=== PATIENT | female | born 1940 | race Caucasian/White ===

== ENCOUNTER 2020-09-15 09:11 | Outpatient (RCR) | payer MEDICARE, SELFPAY | END 2020-09-15 23:59 | LOC: IMMUN 09:11 | PROVIDERS: PCP Family Medicine; Visit Provider Family Medicine | DX: Z23 Encounter for immunization (principal) | CPT/HCPCS: 0011A; 0012A; 91301 ==

== ENCOUNTER 2021-02-22 09:42 | Outpatient (RCR) | payer MEDICARE, SELFPAY ==
[2021-02-22 10:14] VITALS: BP 122/51; PULSE 70; RESP 16; TEMP 36.4; BMI 21.4
[2021-02-22 11:53] LABS: Uric Acid 5.7 mg/dL (2.6-6.0)
--- NOTE | 2021-02-22 12:57 | HP.PCM_ITS ---
History of Present Illness Date of Service: 02/22/21 Chief Complaint: Follow-up on joints of fingers with lesions and tip of finger History of Wound: This is a very young looking 80-year-old woman that has rheumatoid arthritis and Raynaud's disease and sarcoma. She has been seen by dermatology and her arthritis doctor and they both do not know what is wrong with her they gave her Lotrimin cream to put on the lesions. They discussed with her to be referred to wound center for further treatment. [facility], [facility] Medical History Gastric reflux Hypertension Raynauds disease Rheumatoid arthritis Sarcoma Home Medications acetaminophen [Tylenol Extra Strength] 500 mg PO Q6H PRN 02/22/21 [History Last Taken Unknown] cyanocobalamin (vitamin B-12) 2,500 mcg SUBLINGUAL DAILY 02/22/21 [History Last Taken Unknown] flecainide 50 mg PO Q12H 02/22/21 [History Last Taken Unknown] gabapentin 100 mg PO DAILY 02/22/21 [History Last Taken Unknown] hydroxychloroquine 200 mg PO DAILY 02/22/21 [History Last Taken Unknown] loratadine 10 mg PO DAILY 02/22/21 [History Last Taken Unknown] metoprolol tartrate 25 mg PO BID 02/22/21 [History Last Taken Unknown] nifedipine 30 mg PO DAILY 02/22/21 [History Last Taken Unknown] pantoprazole 40 mg PO DAILY 02/22/21 [History Last Taken Unknown] tramadol 50 mg PO BID PRN 02/22/21 [History Last Taken Unknown] Allergy/AdvReac Type Severity Reaction Status Date / Time nitrofurantoin Allergy Hives Verified 09/15/20 07:27 [From Macrodantin] Penicillins Allergy Hives Verified 09/15/20 07:27 sulfamethoxazole Allergy Hives Verified 02/22/21 10:35 trimethoprim [From Bactrim] Allergy Hives Verified 02/22/21 10:35 Social History Smoking Status: Never smoker ROS Constitutional Constitutional: Reports systems reviewed and no addt'l complaints, except as documented Eyes Eyes: Reports systems reviewed and no addt'l complaints, except as documented ENT HEENT: Reports systems reviewed and no addt'l complaints, except as documented Cardiovascular Cardiovascular: Reports systems reviewed and no addt'l complaints, except as doc umented Respiratory/Chest Respiratory/Chest: Reports systems reviewed and no addt'l complaints, except as documented Gastrointestinal Gastrointestinal: Reports systems reviewed and no addt'l complaints, except as documented Genitourinary Genitourinary: Reports systems reviewed and no addt'l complaints, except as documented Musculoskeletal Musculoskeletal: Reports systems reviewed and no addt'l complaints, except as documented, joint stiffness and limited range of motion Integumentary Integumentary: Reports systems reviewed and no addt'l complaints, except as documented, new lesions, non-healing lesions and other Details: Deformity of fingers Neurologic Neurologic: Reports systems reviewed and no addt'l complaints, except as docu mented Psychiatric Psychiatric: Reports systems reviewed and no addt'l complaints, except as documented Endocrine Endocrinology: Reports systems reviewed and no addt'l complaints, except as documented Hematologic/Lymphatic Hematologic/Lymphatic: Reports systems reviewed and no addt'l complaints, except as documented Allergic/Immunologic Allergic/Immunologic: Reports systems reviewed and no addt'l complaints, except as documented Vital Signs Vital Signs Vital Signs: 02/22/21 10:14 Temperature 97.5 F L Temperature Source Temporal Pulse Rate 70 Respiratory Rate 16 Blood Pressure 122/51 H Blood Pressure Mean 74 Blood Pressure Source Monitor Blood Pressure Position Sitting Blood Pressure Location Left Arm Oxygen Delivery Method Room Air Weight Weight: 110 lb Body Mass Index (BMI) 21.4 Physical Exam Const oriented x3 General Appearance: cooperative Exam Limitations: no limitations HEENT normocephalic Head and Scalp: normal to inspection Face and Sinus: normal facial exam Nose: external nose normal General Ear: hearing grossly impaired External Ear: external ears normal Mouth: oral and palatal mucosa normal Eyes PERRL General Eye: normal appearance of both eyes Neck full ROM General: normal visual inspection Resp normal respiratory effort Effort and Inspection: able to speak in complete sentences Auscultation: clear to auscultation bilaterally Cardio regular rate and regular rhythm Palpation: normal PMI Rate: regular rate Rhythm: regular rhythm GI Auscultation: normoactive bowel sounds Palpation: soft and no hepatosplenomegaly external exam normal Back/Spine Cervical Spine: cervical ROM normal Thoracic Spine / Upper Back: normal to inspection Lumbar Spine / Lower Back: normal to inspection Extremity normal to inspection General Extremity: normal exam except as noted Skin no rashes or lesions noted Neuro oriented x3 Psych Appearance: grossly normal Speech: normal speech Thought Content: normal thought content Judgement: judgement good Debridement Note Debridement Note Post-Debridement Measurements and Additional Note: Post-Debridement Measurements/Treatment - Nurse 1 - General Ulcer Assessment Start: 02/22/21 10:10 Freq: Status: Active Protocol: GLENDA Activity Type Activity Date Activity User E-Sign Co-Sign Detail Recorded Client Recorded Date Recorded By Document 02/22/21 10:14 [facility] [id number] 02/22/21 10:31 [facility] 02/22/21 10:14 - Today's Visit Information Type of service Initial Visit Arrival Mode Ambulatory Transfer Assistance None Accompanied by , daughter Patient Identification Verified (Name & Yes ) Patient Requires Transmission-Based No Precautions Height and Weight Height 5 ft Weight 110 lb Weight in Pounds 110.0 lbs Body Mass Index (BMI) 21.4 BMI Classification Normal BSA - Morteza 1.45 Vital Signs Temperature (97.8 F-99.1 F) 97.5 F L Temperature Source Temporal Pulse Rate (60-100) 70 Pulse Location Monitor Respiratory Rate (12-18) 16 Respiratory rate source Observation Oxygen Delivery Method Room Air Blood Pressure (90/60-120/80) 122/51 H Blood Pressure Mean 74 Source Monitor Position Sitting Blood Pressure Location Left Arm History Since Last Visit- (Skip if this is Patient's initial visit) Left Footwear Regular Shoe Right Footwear Regular Shoe Communication Assessment Preferred language German Able to Read Yes Able to Write Yes Communication Tools None Right Hearing Abillity Normal Left Hearing Abillity Normal Visual Assistive Devices Glasses Teaching Assessment Preferences Verbal,Written, Audio/Visual, Demonstration Barriers to Learning None Readiness To Learn Excellent Willingness to Engage in Self Management High Activies Readiness to Engage in Self Management High Activities Anxiety Level Calm Cooperation Cooperative Perception Coherent Interest in Health Problem Asks Questions Education Importance Acknowledges Need Does Patient Smoke tobacco or other No substances Smoking Status Never smoker Is Patient Diabetic No Functional Assessment Recent Decline in Ability to Perform Denies Any Declines Culture/Pentecostalism/Echo Vascular Technologist Cultural/Pentecostalism Needs that may affect No Treatment Plan MARCIA - Nurse 1 - General Ulcer Measurement Start: 02/22/21 10:10 Freq: Status: Active Protocol: Activity Type Activity Date Activity User E-Sign Co-Sign Detail Recorded Client Recorded Date Recorded By Document 02/22/21 10:14 [facility] [id number] 02/22/21 10:31 [facility] 02/22/21 10:14 Wound Center Nurse 1 #4- R 3RD FINGER MEDIAL -Combined with other wound No -Current Size (cm) - Length 0.5 -Current Size (cm) - Width 0.3 -Current Size (cm) - Depth 0.1 -Total Square Cm 0.15 -Date of Last Picture (Recall this 02/22/21 field) -Photo Taken Yes -Epithelialization None Present -Tunneling No -Undermining/Tunneling No -Circular Undermining No -Exudate Amt None Present -Wound Margin Distinct, Outline Attached -Granulation Amt None Present (0 %) -Slough/Fibrin Yes -Necrosis Amt Large (67-100%) -Necrotic Tissue Type Adherent Slough -Texture (Antonieta-wound Skin Appearance) Assessed -Moisture (Antonieta-wound Skin Appearance) Assessed -Color (Antonieta-wound Skin Appearance) Assessed -Temperature (Antonieta-wound Skin No Abnormality Appearance) (Pt Warm) -Tenderness on Palpation (Antonieta-wound Yes Skin Appearance) -Ulcer Cleansing Rinsed/ Irrigated with Saline -Foul Odor after Cleansing No -Anesthetic Used 5% Lidocaine Gel #3- L LAT 4TH FINGER -Combined with other wound No -Current Size (cm) - Length 0.5 -Current Size (cm) - Width 0.3 -Current Size (cm) - Depth 0.1 -Total Square Cm 0.15 -Date of Last Picture (Recall this 02/22/21 field) -Photo Taken Yes -Epithelialization None Present -Tunneling No -Undermining/Tunneling No -Circular Undermining No -Exudate Amt None Present -Wound Margin Distinct, Outline Attached -Granulation Amt None Present (0 %) -Slough/Fibrin Yes -Necrosis Amt Small (1-33%) -Necrotic Tissue Type Adherent Slough -Texture (Antonieta-wound Skin Appearance) Assessed -Moisture (Antonieta-wound Skin Appearance) Assessed -Color (Antonieta-wound Skin Appearance) Assessed -Temperature (Antonieta-wound Skin No Abnormality Appearance) (Pt Warm) -Tenderness on Palpation (Antonieta-wound Yes Skin Appearance) -Ulcer Cleansing Rinsed/ Irrigated with Saline -Foul Odor after Cleansing No -Anesthetic Used 5% Lidocaine Gel #2- L 3RD FINGER ANTERIOR -Combined with other wound No -Current Size (cm) - Length 0.1 -Current Size (cm) - Width 0.2 -Current Size (cm) - Depth 0.1 -Total Square Cm 0.02 -Date of Last Picture (Recall this 02/22/21 field) -Photo Taken Yes -Epithelialization None Present -Tunneling No -Undermining/Tunneling No -Circular Undermining No -Exudate Amt None Present -Wound Margin Distinct, Outline Attached -Granulation Amt None Present (0 %) -Slough/Fibrin Yes -Necrosis Amt Large (67-100%) -Necrotic Tissue Type Adherent Slough -Texture (Antonieta-wound Skin Appearance) Assessed, Localized Edema ,Scarring -Moisture (Antonieta-wound Skin Appearance) Assessed -Color (Antonieta-wound Skin Appearance) Assessed -Temperature (Antonieta-wound Skin No Abnormality Appearance) (Pt Warm) -Tenderness on Palpation (Antonieta-wound No Skin Appearance) -Ulcer Cleansing Rinsed/ Irrigated with Saline -Foul Odor after Cleansing No -Anesthetic Used 5% Lidocaine Gel #1- R 3RD FINGER TIP -Combined with other wound No -Current Size (cm) - Length 0.5 -Current Size (cm) - Width 0.8 -Current Size (cm) - Depth 0.1 -Total Square Cm 0.40 -Date of Last Picture (Recall this 02/22/21 field) -Photo Taken Yes -Epithelialization None Present -Tunneling No -Undermining/Tunneling No -Circular Undermining No -Exudate Amt None Present -Wound Margin Distinct, Outline Attached -Granulation Amt None Present (0 %) -Slough/Fibrin Yes -Necrosis Amt Large (67-100%) -Necrotic Tissue Type Adherent Slough -Texture (Antonieta-wound Skin Appearance) Assessed -Moisture (Antonieta-wound Skin Appearance) Assessed -Color (Antonieta-wound Skin Appearance) Assessed, Erythema -Temperature (Antonieta-wound Skin No Abnormality Appearance) (Pt Warm) -Tenderness on Palpation (Antonieta-wound Yes Skin Appearance) -Ulcer Cleansing Rinsed/ Irrigated with Saline -Foul Odor after Cleansing No -Anesthetic Used 5% Lidocaine Gel No debridement was completed: No debridement was completed today Lab / Micro Data Labs: Laboratory Results - last 24 hr 02/22/21 11:08 Uric Acid 5.7 Assessment/Plan Assessment/Plan (1) Rheumatoid arthritis: CODE(S): M06.9 - Rheumatoid arthritis, unspecified (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
== END 2021-02-22 23:59 ==
LOC: WC 09:42
PROVIDERS: PCP Family Medicine; Referring Provider Nurse Practitioner; Visit Provider Nurse Practitioner
DX: M06.9 Rheumatoid arthritis, unspecified (principal); M1A.9XX1 Chronic gout, unspecified, with tophus (tophi); I10 Essential (primary) hypertension; I73.00 Raynaud's syndrome without gangrene; K21.9 Gastro-esophageal reflux disease without esophagitis; Z79.899 Other long term (current) drug therapy
CPT/HCPCS: 36415; 84550; 99213; G0463

== ENCOUNTER → 2021-03-02 09:54 | Outpatient (CLI) | payer MEDICARE, SELFPAY ==
[2021-02-22 10:14] VITALS: BMI 21.4
[2021-03-02 12:57] LABS: Absolute Lymphocyte Count 2.27 X10^3/uL (0.83-4.51); Absolute Neutrophil Count 6.3 X10^3/uL (2.0-7.7); Basophil# 0.07 X10^3/uL; Basophil% 0.7 % (0-1); Eosinophil# 0.38 X10^3/uL; Eosinophils% 3.8 % (0-5); Lymphocyte # 2.27 X10^3/ul (0.83-4.51); Lymphocyte % 22.7 % (19-41); Mean Corp Hgb Conc 28.1 g/dL (32-36); Mean Corpuscular Hgb 24.1 pg (27.0-32.0); Mean Corpuscular Volume 85.6 fL (81-99); Mean Platelet Vol. 9.5 fl (6.2-12.0); Monocyte# 0.95 X10^3/uL; Monocyte% 9.5 % (0-10); NRBC Flagged by Analyzer 0 % (0-5); Neutrophil # 6.29 X10^3/uL (2.7-7.7); Neutrophil % 62.8 % (47-70); Platelet Count 374 K/mm3 (150-450); RBC Distribution Width CV 15.4 % (11.6-14.6); Red Blood Count 3.74 M/mm3 (4.2-5.4)
[2021-03-02 13:24] LABS: ALB/GLOB Ratio 0.9 RATIO (0.9-2.4); AST(SGOT) 19 U/L (15-37); Alanine Aminotransfer ALT/SGPT 14 U/L (13-56); Albumin, Serum 3.4 g/dL (3.2-5.0); Alkaline Phosphatase 54 U/L (45-117); Anion Gap 6 (5-15); BUN 22 mg/dL (7-18); BUN/Creat Ratio 26.8 RATIO (10-20); Calcium,Total 8.3 mg/dL (8.5-10.1); Chloride 105 mmol/L (98-107); Creatinine, Serum 0.82 mg/dL (0.55-1.02); EST Glomerular Filtration Rate 71 mL/min (>60); Est Glom Filt Rate - Afr Amer 86 mL/min (>60); Globulin 3.8 g/dL (2.2-4.2); Glucose 93 mg/dL (74-106); Phosphorus 2.7 mg/dL (2.5-4.9); Potassium 5.1 mmol/L (3.5-5.1); Protein, Total 7.2 g/dL (6.4-8.2); Sodium Level 140 mmol/L (136-145)
== END ==
PROVIDERS: PCP Family Medicine; Visit Provider Nurse Practitioner
DX: M06.9 Rheumatoid arthritis, unspecified (principal); M1A.9XX1 Chronic gout, unspecified, with tophus (tophi)
CPT/HCPCS: 36415; 80053; 84100; 85025

== ENCOUNTER 2021-03-08 10:30 | Outpatient (RCR) | payer MEDICARE, SELFPAY ==
[2021-02-23 00:37] VITALS: BP 122/51; PULSE 70; RESP 16; TEMP 36.4
[2021-03-08 10:37] VITALS: BP 125/58; PULSE 76; TEMP 36.5; BMI 21.4
--- NOTE | 2021-03-08 12:28 | PN.PCM_ITS ---
History of Present Illness Date of Service: 03/08/21 Chief Complaint: Follow-up on joints of fingers with lesions and tip of finger History of Wound: This is a very young looking 80-year-old woman that has rheumatoid arthritis and Raynaud's disease and sarcoma. She has been seen by dermatology and her arthritis doctor and they both do not know what is wrong with her they gave her Lotrimin cream to put on the lesions. They discussed with her to be referred to wound center for further treatment. Subjective Subjective Patient was hesitant to start the allopurinol until she talked with me and get the lab results. Objective Data Objective Data She has healed nodules on each finger MIP joints. Patient is to start allopurinol 300 mg once a day follow-up in 2 months. Vital Signs: Vital Signs Temp Pulse Resp BP 97.7 F L 76 16 125/58 H 03/08/21 10:37 03/08/21 10:37 02/23/21 00:37 03/08/21 10:37 Weight: 110 lb Body Mass Index (BMI) 21.4 Lab / Micro Data Attestation: I reviewed the patient's lab results. Lab results narrative: Kidney functions are normal and uric acid is on the high end of normal Physical Exam Const oriented x3 General Appearance: cooperative Exam Limitations: no limitations Resp normal respiratory effort Effort and Inspection: able to speak in complete sentences Auscultation: clear to auscultation bilaterally Cardio regular rate and regular rhythm Palpation: normal PMI Rate: regular rate Rhythm: regular rhythm Extremity normal to inspection General Extremity: normal exam except as noted Skin Lesions: no lesions Neuro oriented x3 Psych Appearance: grossly normal Speech: normal speech Thought Content: normal thought content Judgement: judgement good Debridement Note Debridement Note Post-Debridement Measurements and Additional Note: Post-Debridement Measurements/Treatment - Nurse 1 - General Ulcer Assessment Start: 03/08/21 10:37 Freq: Status: Active Protocol: GLENDA Activity Type Activity Date Activity User E-Sign Co-Sign Detail Recorded Client Recorded Date Recorded By Document 03/08/21 10:37 ROGELIO [id number] 03/08/21 10:42 ROGELIO 03/08/21 10:37 - Today's Visit Information Type of service Follow-up Visit (Physician/SECURITY SYSTEMS ENGINEER ) Arrival Mode Ambulatory,Cane Patient Identification Verified (Name & Yes ) Height and Weight Body Mass Index (BMI) 21.4 BMI Classification Normal Vital Signs Temperature (97.8 F-99.1 F) 97.7 F L Temperature Source Temporal Pulse Rate (60-100) 76 Pulse Location Monitor Blood Pressure (90/60-120/80) 125/58 H Blood Pressure Mean (mm Hg) 80 Source Monitor Position Semi-Fowlers Blood Pressure Location Right Arm History Since Last Visit- (Skip if this is Patient's initial visit) Have you changed medications since your No last visit? Any new allergies or adverse reactions No Had a fall/change in ADL's that may No increase risk of falls Signs or symptoms of abuse and/or No neglect since last visit Have you been in the hospital since your No last visit? Has dressing in place as prescribed No Has compression in place as prescribed N/A Has offloadiing in place as prescribed N/A Experienced any changes in pain level or No management Left Footwear Regular Shoe Right Footwear Regular Shoe Pain Scale: 0-10 Numeric Is Patient Pain Free? Yes WC - Nurse 1 - General Ulcer Measurement Start: 03/08/21 10:37 Freq: Status: Active Protocol: Activity Type Activity Date Activity User E-Sign Co-Sign Detail Recorded Client Recorded Date Recorded By Document 03/08/21 10:37 ROGELIO [id number] 03/08/21 10:42 ROGELIO 03/08/21 10:37 Wound Center Nurse 1 #4- R 3RD FINGER MEDIAL -Current Size (cm) - Length 0.1 -Current Size (cm) - Width 0.1 -Current Size (cm) - Depth 0.1 -Total Square Cm 0.01 -Exudate Amt Small -Exudate Type Serosanguineous -Wound Margin Distinct, Outline Attached -Granulation Amt Small (1-33%) -Granulation Quality [place] -Necrosis Amt None Present (0 %) -Texture (Antonieta-wound Skin Appearance) Assessed, Scarring -Moisture (Antonieta-wound Skin Appearance) No Abnormality, Assessed -Color (Antonieta-wound Skin Appearance) No Abnormality, Assessed -Temperature (Antonieta-wound Skin No Abnormality Appearance) (Pt Warm) -Tenderness on Palpation (Antonieta-wound No Skin Appearance) -Ulcer Cleansing Rinsed/ Irrigated with Saline -Foul Odor after Cleansing No -Anesthetic Used 5% Lidocaine Gel #3- L LAT 4TH FINGER -Current Size (cm) - Length 0.1 -Current Size (cm) - Width 0.1 -Current Size (cm) - Depth 0.1 -Total Square Cm 0.01 -Exudate Amt Small -Exudate Type Serosanguineous -Wound Margin Distinct, Outline Attached -Granulation Amt Small (1-33%) -Granulation Quality [place] -Slough/Fibrin No -Necrosis Amt None Present (0 %) -Texture (Antonieta-wound Skin Appearance) Assessed, Scarring -Moisture (Antonieta-wound Skin Appearance) No Abnormality, Assessed -Color (Antonieta-wound Skin Appearance) No Abnormality, Assessed -Temperature (Antonieta-wound Skin No Abnormality Appearance) (Pt Warm) -Tenderness on Palpation (Antonieta-wound No Skin Appearance) -Ulcer Cleansing Rinsed/ Irrigated with Saline -Foul Odor after Cleansing No -Anesthetic Used 5% Lidocaine Gel #2- L 3RD FINGER ANTERIOR -Current Size (cm) - Length 0.1 -Current Size (cm) - Width 0.1 -Current Size (cm) - Depth 0.1 -Total Square Cm 0.01 -Exudate Amt None Present -Wound Margin Distinct, Outline Attached -Granulation Amt Small (1-33%) -Granulation Quality [place] -Slough/Fibrin No -Necrosis Amt None Present (0 %) -Texture (Antonieta-wound Skin Appearance) Assessed, Scarring -Moisture (Antonieta-wound Skin Appearance) No Abnormality, Assessed -Color (Antonieta-wound Skin Appearance) No Abnormality, Assessed -Temperature (Antonieta-wound Skin No Abnormality Appearance) (Pt Warm) -Tenderness on Palpation (Antonieta-wound No Skin Appearance) -Ulcer Cleansing Rinsed/ Irrigated with Saline -Foul Odor after Cleansing No -Anesthetic Used 5% Lidocaine Gel #1- R 3RD FINGER TIP -Current Size (cm) - Length 0.1 -Current Size (cm) - Width 0.1 -Current Size (cm) - Depth 0.1 -Total Square Cm 0.01 -Exudate Amt Small -Exudate Type Serosanguineous -Wound Margin Distinct, Outline Attached -Granulation Amt Small (1-33%) -Granulation Quality [place] -Necrosis Amt None Present (0 %) -Texture (Antonieta-wound Skin Appearance) Assessed, Scarring -Moisture (Antonieta-wound Skin Appearance) No Abnormality, Assessed -Color (Antonieta-wound Skin Appearance) No Abnormality, Assessed -Temperature (Antonieta-wound Skin No Abnormality Appearance) (Pt Warm) -Tenderness on Palpation (Antonieta-wound No Skin Appearance) -Ulcer Cleansing Rinsed/ Irrigated with Saline -Foul Odor after Cleansing No -Anesthetic Used 5% Lidocaine Gel WC - Nurse 2 - General Ulcer CM Notes Start: 03/08/21 10:37 Freq: Status: Active Protocol: Activity Type Activity Date Activity User E-Sign Co-Sign Detail Recorded Client Recorded Date Recorded By Document 03/08/21 11:02 MW [id number] 03/08/21 11:06 MW 03/08/21 11:02 Wound Center Nurse 2 #4- R 3RD FINGER MEDIAL -Wound/Ulcer Outcome Healed- Epithelialized #3- L LAT 4TH FINGER -Wound/Ulcer Outcome Healed- Epithelialized #2- L 3RD FINGER ANTERIOR -Wound/Ulcer Outcome Healed- Epithelialized #1- R 3RD FINGER TIP -Wound/Ulcer Outcome Healed- Epithelialized Pain Scale: 0-10 Numeric Is Patient Pain Free? 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
== END 2021-03-25 23:59 ==
LOC: WC 10:30
PROVIDERS: PCP Family Medicine; Referring Provider Nurse Practitioner; Visit Provider Nurse Practitioner
DX: M06.9 Rheumatoid arthritis, unspecified (principal); I73.00 Raynaud's syndrome without gangrene; M1A.9XX1 Chronic gout, unspecified, with tophus (tophi); Z79.899 Other long term (current) drug therapy
CPT/HCPCS: 99213; G0463

== ENCOUNTER 2021-05-10 10:30 | Outpatient (RCR) | payer MEDICARE, SELFPAY ==
[2021-03-26 00:35] VITALS: BP 125/58; PULSE 76; RESP 16; TEMP 36.5
--- NOTE | 2021-05-10 11:41 | PCM.WC.PN ---
History of Present Illness Date of Service: 05/10/21 Chief Complaint: Follow-up on joints of fingers with lesions and tip of finger History of Wound: This is a very young looking 80-year-old woman that has rheumatoid arthritis and Raynaud's disease and sarcoma. She has been seen by dermatology and her rheumatology doctor and they both do not know what is wrong with her they gave her Lotrimin cream to put on the lesions. They discussed with her to be referred to wound center for further treatment. Progress of Wound: The tophi's were on her MIP joints and DIP joints were external. Now they have disappeared and her hands looks very smooth. Patient states she saw a difference after 1 week on medication. So officially the patient has gout with tophi and needs to be on allopurinol probably the rest of her life. We discussed the options of not having to be at 300 she could try a year at 300 and the may be decreased to 200 and see if she gets an outbreak it is really up about her. I only request that she gets thorough kidney functions every 6 to 12 months recheck her kidney functions on the medication. Patient is to be discharged from the wound center unless there is other complications. Subjective Subjective Patient is extremely happy with the outcome has been waiting 2 years for someone to finally diagnosed her correctly and treat her correctly. Objective Data Objective Data Again all fingers are smooth there is no sign of external tophi. Patient is tolerating medication well on a daily basis Vital Signs: Vital Signs Temp Pulse Resp BP 97.7 F L 76 16 125/58 H 03/26/21 00:35 03/26/21 00:35 03/26/21 00:35 03/26/21 00:35 Weight: 110 lb Body Mass Index (BMI) 21.4 Physical Exam Const oriented x3 General Appearance: cooperative Exam Limitations: no limitations Resp normal respiratory effort Effort and Inspection: able to speak in complete sentences Auscultation: clear to auscultation bilaterally Cardio regular rate and regular rhythm Palpation: normal PMI Rate: regular rate Rhythm: regular rhythm Extremity normal to inspection General Extremity: normal exam except as noted Skin Lesions: no lesions Neuro oriented x3 Psych Appearance: grossly normal Speech: normal speech Thought Content: normal thought content Judgement: judgement good Debridement Note Debridement Note Wound debrided: Finger knuckles joints No debridement was completed: No debridement was completed today Assessment/Plan Assessment/Plan (1) Rheumatoid arthritis: CODE(S): M06.9 - Rheumatoid arthritis, unspecified QUALIFIERS: Rheumatoid arthritis location: hand Rheumatoid factor presence: unspecified presence Laterality: bilateral Qualified Code(s): M06.9 - Rheumatoid arthritis, unspecified (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 Follow-up with own PCP for further lab studies and prescription refills. May try to decrease dosing to 200 mg a day to see if tophi reappear or or if tolerant to that dosage. Discharge from the wound center follow-up as needed
== END 2021-05-10 10:48 | disposition home or self-care (01) ==
LOC: WC 10:30
PROVIDERS: PCP Family Medicine; Referring Provider Nurse Practitioner; Visit Provider Nurse Practitioner
DX: M06.9 Rheumatoid arthritis, unspecified (principal); M1A.9XX1 Chronic gout, unspecified, with tophus (tophi)
CPT/HCPCS: 99213; G0463

== ENCOUNTER 2022-01-10 07:30 | Outpatient (RCR) | payer MEDICARE, SELFPAY ==
--- NOTE | 2022-01-10 09:14 | PCM.WC.PN ---
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 Dermatology and rheumatology has not been able to help her with these. Had seen her approximately 1 year ago for the same and have not started her on allopurinol daily and they never refilled per her family doctor would not refill the med. Patient states she was only on for 1 month. This time we will restart the allopurinol at 300 and retake lab work get DANITZA liver and renal panel TSH. And follow her back up in 1 month Progress of Wound: Still has the crusted open tophi of the right third finger knuckle and deformity of her finger she says its hard to grab things. Will get more lab work and reevaluate her in 1 month and see we can move her meds around. Subjective Subjective Discussed with patient's options that we can do she was agreeable Objective Data Objective Data As stated above we will look at her labs looking at renal functions and liver functions thyroid We will restart her allopurinol 300 we could go up to 600 I want to make sure her kidneys and liver were good we will follow her up in 1 month Lab / Micro Data Attestation: I reviewed the patient's lab results. (So far renal liver panel is all within normal thyroid good. Her DANITZA is pending) Result Diagrams: 01/10/22 09:00 01/10/22 09:00 Physical Exam Const oriented x3 General Appearance: cooperative Exam Limitations: no limitations Resp normal respiratory effort Effort and Inspection: able to speak in complete sentences Auscultation: clear to auscultation bilaterally Cardio regular rate and regular rhythm Palpation: normal PMI Rate: regular rate Rhythm: regular rhythm Extremity normal to inspection General Extremity: normal exam except as noted Skin Lesions: no lesions Neuro oriented x3 Psych Appearance: grossly normal Speech: normal speech Thought Content: normal thought content Judgement: judgement good Debridement Note Debridement Note No debridement was completed: No debridement was completed today Post-Debridement Measurements and Additional Note: Post-Debridement Measurements/Treatment MARCIA - Nurse 1 - General Ulcer Assessment Start: 01/10/22 08:08 Freq: Status: Active Protocol: GLENDA Activity Type Activity Date Activity User E-Sign Co-Sign Detail Recorded Client Recorded Date Recorded By Document 01/10/22 08:08 AK [id number] 01/10/22 08:17 AK 01/10/22 08:08 - Today's Visit Information Type of service Follow-up Visit (Physician/SILICA [employer]Y PRESS HELPER ) Arrival Mode Ambulatory Patient Identification Verified (Name & Yes ) Patient Requires Transmission-Based No Precautions Safety Precautions NA Pain Scale: 0-10 Numeric Is Patient Pain Free? Yes - Nurse 1 - General Ulcer Measurement Start: 01/10/22 08:08 Freq: Status: Active Protocol: Activity Type Activity Date Activity User E-Sign Co-Sign Detail Recorded Client Recorded Date Recorded By Document 01/10/22 08:08 AK [id number] 01/10/22 08:17 AK 01/10/22 08:08 Wound Center Nurse 1 #5 L 2nd finger -Current Size (cm) - Length 0.5 -Current Size (cm) - Width 1.2 -Current Size (cm) - Depth 0.1 -Total Square Cm 0.60 -Date of Last Picture (Recall this 01/10/22 field) -Photo Taken Yes -Tunneling No -Undermining/Tunneling No -Circular Undermining No -Change in Wound Grade/Stage No -Exudate Amt None Present -Wound Margin Distinct, Outline Attached -Granulation Quality N/A -Necrosis Amt Small (1-33%) -Necrotic Tissue Type Eschar -Structure Exposed N/A -Texture (Antonieta-wound Skin Appearance) Assessed -Moisture (Antonieta-wound Skin Appearance) Assessed -Color (Antonieta-wound Skin Appearance) Assessed -Temperature (Antonieta-wound Skin No Abnormality Appearance) (Pt Warm) -Tenderness on Palpation (Antonieta-wound No Skin Appearance) -Ulcer Cleansing Rinsed/ Irrigated with Saline -Anesthetic Used 4% Lidocaine Solution - Nurse 2 - General Ulcer CM Notes Start: 01/10/22 08:08 Freq: Status: Active Protocol: Activity Type Activity Date Activity User E-Sign Co-Sign Detail Recorded Client Recorded Date Recorded By Document 01/10/22 08:36 MW [id number] 01/10/22 08:40 MW 01/10/22 08:36 Wound Center Nurse 2 -Time 08:36 -Correct Patient Yes -Correct Side, Site, Position Yes -Correct Procedure Yes -Procedure Performed No Pain Scale: 0-10 Numeric Is Patient Pain Free? Yes - Nurse 3 - General Ulcer D/C NN Start: 01/10/22 08:08 Freq: Status: Active Protocol: Activity Type Activity Date Activity User E-Sign Co-Sign Detail Recorded Client Recorded Date Recorded By Document 01/10/22 08:43 MW [id number] 01/10/22 08:44 MW 01/10/22 08:43 Wound Care Nurse 3 #5 L 2nd finger -Ulcer Cleansing Not Cleansed -Foul Odor after Cleansing No -Negative Pressure Wound Therapy N/A -Other Dressing scab left open to air Treatment Response Procedure Tolerated Well Pain Scale: 0-10 Numeric Is Patient Pain Free? 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
[2022-01-10 10:23] LABS: AST(SGOT) 19 U/L (15-37); Alanine Aminotransfer ALT/SGPT 16 U/L (13-56); Albumin, Serum 3.5 g/dL (3.2-5.0); Alkaline Phosphatase 49 U/L (45-117); Anion Gap 4 (5-15); BUN 25 mg/dL (7-18); BUN/Creat Ratio 27.3 RATIO (10-20); Bilirubin, Direct 0.11 mg/dL (0.00-0.30); Calcium,Total 8.7 mg/dL (8.5-10.1); Chloride 108 mmol/L (98-107); Creatinine, Serum 0.92 mg/dL (0.55-1.02); EST Glomerular Filtration Rate 63 mL/min (>60); Est Glom Filt Rate - Afr Amer 76 mL/min (>60); Globulin 3.9 g/dL (2.2-4.2); Glucose 97 mg/dL (74-106); Phosphorus 3.9 mg/dL (2.5-4.9); Potassium 4.4 mmol/L (3.5-5.1); Protein, Total 7.4 g/dL (6.4-8.2); Sodium Level 140 mmol/L (136-145); Thyroid Stim Hormone (TSH) 1.13 uIU/mL (0.358-3.74); Uric Acid 5.3 mg/dL (2.6-6.0)
[2022-01-11 17:19] LABS: ANTINUCLEAR ANTIBODIES DIRECT Negative (Negative)
== END 2022-01-23 23:59 | disposition home or self-care (01) ==
LOC: WC 07:30
PROVIDERS: PCP Family Medicine; Referring Provider Nurse Practitioner; Visit Provider Nurse Practitioner
DX: M06.9 Rheumatoid arthritis, unspecified (principal); M1A.9XX1 Chronic gout, unspecified, with tophus (tophi); Z79.899 Other long term (current) drug therapy
CPT/HCPCS: 36415; 80048; 80076; 84100; 84443; 84550; 86038; 86225; 86235; 99213; G0463

== ENCOUNTER 2022-02-07 08:54 | Outpatient (RCR) | payer MEDICARE, SELFPAY ==
[2022-02-07 08:57] VITALS: BP 129/89; PULSE 70; TEMP 36.3
--- NOTE | 2022-02-07 09:49 | PN.PCM_ITS ---
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 Dermatology and rheumatology has not been able to help her with these. Had seen her approximately 1 year ago for the same and have not started her on allopurinol daily and they never refilled per her family doctor would not refill the med. Patient states she was only on for 1 month. This time we will restart the allopurinol at 300 and retake lab work get DANITZA liver and renal panel TSH. And follow her back up in 1 month Progress of Wound: All of her labs were within normal limits and her uric acid is on the high end of normal but still normal. Patient has still been taking allopurinol 300 mg a day and doing well. Hands look better. Third knuckle of the left hand still looks smaller and still hard. Still will not remove this at this time trying to shrink it. Suggest she start her Plaquenil at increased dose of twice daily to maybe help with pain. She is already on gabapentin but it makes her extremely tired. I also suggested she refer her to [facility] for a second opinion. Also suggested using Voltaren cream to her hands and wrists she is developing on the right medial wrist another painful lump. Subjective Subjective Patient just complains of a lot of pain in her hands 9 out of 10 and will is willing to try anything for healing. She feels the fingers look better Objective Data Objective Data I think the fingers look better on all digits less breakage of skin the tophi's are coming through only on the 1 knuckle. There are smaller skin is healing over top we will continue the uric acid increase her Plaquenil. Have her follow-up with a different arthritis lens and frames prescription clerk. Follow-up in 6 weeks Vital Signs: Vital Signs Temp Pulse BP 97.4 F L 70 129/89 H 02/07/22 08:57 02/07/22 08:57 02/07/22 08:57 Physical Exam Const oriented x3 General Appearance: cooperative Exam Limitations: no limitations Resp normal respiratory effort Effort and Inspection: able to speak in complete sentences Auscultation: clear to auscultation bilaterally Cardio regular rate and regular rhythm Palpation: normal PMI Rate: regular rate Rhythm: regular rhythm Extremity normal to inspection General Extremity: normal exam except as noted Skin Lesions: no lesions Neuro oriented x3 Psych Appearance: grossly normal Speech: normal speech Thought Content: normal thought content Judgement: judgement good Debridement Note Debridement Note No debridement was completed: No debridement was completed today Post-Debridement Measurements and Additional Note: Post-Debridement Measurements/Treatment MARCIA - Nurse 1 - General Ulcer Assessment Start: 02/07/22 08:57 Freq: Status: Active Protocol: GLENDA Activity Type Activity Date Activity User E-sign Co-sign Detail Recorded Client Recorded Date Recorded By Document 02/07/22 08:57 ROGELIO [id number] 02/07/22 09:00 ROGELIO 02/07/22 08:57 WC - Today's Visit Information Type of service Follow-up Visit (Physician/BALLISTICIAN ) Arrival Mode Ambulatory Patient Identification Verified (Name & Yes ) Vital Signs Temperature (97.8 F-99.1 F) 97.4 F L Temperature Source Temporal Pulse Rate (60-100) 70 Pulse Location Monitor Blood Pressure (90/60-120/80) 129/89 H Blood Pressure Mean (mm Hg) 102 Source Monitor Position Sitting Blood Pressure Location Right Arm History Since Last Visit- (Skip if this is Patient's initial visit) Have you changed medications since your No last visit? Any new allergies or adverse reactions No Had a fall/change in ADL's that may No increase risk of falls Signs or symptoms of abuse and/or No neglect since last visit Have you been in the hospital since your No last visit? Has dressing in place as prescribed Yes Has compression in place as prescribed N/A Has offloadiing in place as prescribed N/A Experienced any changes in pain level or No management Left Footwear Regular Shoe Right Footwear Regular Shoe Pain Scale: 0-10 Numeric Is Patient Pain Free? Yes - Nurse 1 - General Ulcer Measurement Start: 02/07/22 08:57 Freq: Status: Active Protocol: Activity Type Activity Date Activity User E-sign Co-sign Detail Recorded Client Recorded Date Recorded By Document 02/07/22 08:57 ROGELIO [id number] 02/07/22 09:00 ROGELIO 02/07/22 08:57 Wound Center Nurse 1 #5 L 2nd finger -Current Size (cm) - Length 0.6 -Current Size (cm) - Width 1 -Current Size (cm) - Depth 0.1 -Total Square Cm 0.6 -Exudate Amt None Present -Wound Margin Distinct, Outline Attached -Granulation Amt None Present (0 %) -Necrosis Amt None Present (0 %) -Texture (Antonieta-wound Skin Appearance) Assessed, Scarring -Moisture (Antonieta-wound Skin Appearance) Assessed,Dry/ Scaly -Color (Antonieta-wound Skin Appearance) No Abnormality, Assessed -Temperature (Antonieta-wound Skin No Abnormality Appearance) (Pt Warm) -Tenderness on Palpation (Antonieta-wound No Skin Appearance) -Ulcer Cleansing Rinsed/ Irrigated with Saline -Foul Odor after Cleansing No -Anesthetic Used 4% Lidocaine Solution WC - Nurse 2 - General Ulcer CM Notes Start: 02/07/22 08:57 Freq: Status: Active Protocol: Activity Type Activity Date Activity User E-sign Co-sign Detail Recorded Client Recorded Date Recorded By Document 02/07/22 09:07 MW [id number] 02/07/22 09:20 MW 02/07/22 09:07 Wound Center Nurse 2 -Time 09:07 -Correct Patient Yes -Correct Side, Site, Position Yes -Correct Procedure Yes -Procedure Performed No -Wound/Ulcer Outcome Not Healed -Ulcer Cleansing Rinsed/ Irrigated with Saline -Foul Odor after Cleansing No -Bioengineered Tissue No -Bleeding Controlled with NA -Treatment Response Procedure Tolerated Well -Offloading No Pain Scale: 0-10 Numeric Is Patient Pain Free? Yes - Nurse 3 - General Ulcer D/C NN Start: 02/07/22 08:57 Freq: Status: Active Protocol: Activity Type Activity Date Activity User E-sign Co-sign Detail Recorded Client Recorded Date Recorded By Document 02/07/22 09:21 MW [id number] 02/07/22 09:23 MW 02/07/22 09:21 Wound Care Nurse 3 #5 L 2nd finger -Ulcer Cleansing Not Cleansed -Foul Odor after Cleansing No -Other Dressing open to air Treatment Response Procedure Tolerated Well Pain Scale: 0-10 Numeric Is Patient Pain Free? No Bilateral hands -Description Throbbing -Intensity 9 -Duration (hours) Chronic -Pain Behavior No Change in Behavior -Pain Aggravating Factors ADL's,Exercise/ Activity -Alleviating Factors/Interventions Medicate when due -Effectiveness of Alleviating Factor/ Minimally Intervention effective Teaching: Wound Center Skin Care -Person Taught Patient,Family -Teaching Method Discussion -Response to teaching Verbalize understanding WC - Visit Discharge Discharge Condition Stable Ambulatory Status Ambulatory Transportation Private Auto Accompanied by Medication Reconcilliation completed & No provided to patient/care provider Clinical Summary of Care Provided Yes Assessment/Plan Assessment/Plan (1) Rheumatoid arthritis: CODE(S): M06.9 - Rheumatoid arthritis, unspecified QUALIFIERS: Rheumatoid arthritis location: hand Rheumatoid factor presence: unspecified presence Laterality: bilateral Qualified Code(s): M06.9 - Rheumatoid arthritis, unspecified (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
== END 2022-02-22 23:59 | disposition home or self-care (01) ==
LOC: WC 08:54
PROVIDERS: PCP Family Medicine; Referring Provider Nurse Practitioner; Visit Provider Nurse Practitioner
DX: M1A.9XX1 Chronic gout, unspecified, with tophus (tophi) (principal); M06.9 Rheumatoid arthritis, unspecified
CPT/HCPCS: 99213; G0463

== ENCOUNTER 2022-03-14 09:54 | Outpatient (RCR) | payer MEDICARE, SELFPAY ==
[2022-02-23 00:42] VITALS: BP 129/89; PULSE 70; TEMP 36.3
[2022-03-14 10:07] VITALS: BP 113/64; PULSE 84; TEMP 36
--- NOTE | 2022-03-14 12:21 | PN.PCM_ITS ---
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 Dermatology and rheumatology has not been able to help her with these. Had seen her approximately 1 year ago for the same and have not started her on allopurinol daily and they never refilled per her family doctor would not refill the med. Patient states she was only on for 1 month. This time we will restart the allopurinol at 300 and retake lab work get DANITZA liver and renal panel TSH. And follow her back up in 1 month Progress of Wound: February 07 was her last visit together it is now March 14 so approximately 1 month since her last visit she is continuing to take the allopurinol 300 mg a day she is feeling better pain is better. She has been using topical antibiotic ointment for some of the wounds and they have disappeared with pain she says the inflammation is better still has poor movement but has a little movement which is better than none. Patient still needs to get a hold of [facility] they never called her back for an appointment for second opinion. We will fax over to her family doctor lab results. We will continue the allopurinol and she needs to follow-up with her doctor every 6 months for kidney function testing. Patient will be discharged from the wound center and she can follow-up if there is any other issues but there is really nothing more I can do for her. Subjective Subjective Patient is grateful and is doing much better on the hydroxychloroquine at 1 pill a day and the allopurinol at 300 mg a day. Objective Data Objective Data Also sent some Bactroban ointment she can use for infection control on her fingers at the joints when they get inflamed. Vital Signs: Vital Signs Temp Pulse BP 96.8 F L 84 113/64 03/14/22 10:07 03/14/22 10:07 03/14/22 10:07 Lab / Micro Data Attestation: I reviewed the patient's lab results. Physical Exam Const oriented x3 General Appearance: cooperative Exam Limitations: no limitations Resp normal respiratory effort Effort and Inspection: able to speak in complete sentences Auscultation: clear to auscultation bilaterally Cardio regular rate and regular rhythm Palpation: normal PMI Rate: regular rate Rhythm: regular rhythm Extremity normal to inspection General Extremity: normal exam except as noted Skin Lesions: no lesions Neuro oriented x3 Psych Appearance: grossly normal Speech: normal speech Thought Content: normal thought content Judgement: judgement good Debridement Note Debridement Note No debridement was completed: No debridement was completed today Post-Debridement Measurements and Additional Note: Post-Debridement Measurements/Treatment MARCIA - Nurse 1 - General Ulcer Assessment Start: 03/14/22 10:07 Freq: Status: Active Protocol: GLENDA Activity Type Activity Date Activity User E-sign Co-sign Detail Recorded Client Recorded Date Recorded By Document 03/14/22 10:07 ROGELIO [id number] 03/14/22 10:09 ROGELIO 03/14/22 10:07 MARCIA - Today's Visit Information Type of service Follow-up Visit (Physician/DIVISION MANAGER ) Arrival Mode Ambulatory Patient Identification Verified (Name & Yes ) Vital Signs Temperature (97.8 F-99.1 F) 96.8 F L Temperature Source Temporal Pulse Rate (60-100) 84 Pulse Location Monitor Blood Pressure (90/60-120/80) 113/64 Blood Pressure Mean (mm Hg) 80 Source Monitor Position Sitting Blood Pressure Location Left Arm History Since Last Visit- (Skip if this is Patient's initial visit) Have you changed medications since your No last visit? Any new allergies or adverse reactions No Had a fall/change in ADL's that may No increase risk of falls Signs or symptoms of abuse and/or No neglect since last visit Have you been in the hospital since your No last visit? Has dressing in place as prescribed Yes Has compression in place as prescribed N/A Has offloadiing in place as prescribed N/A Experienced any changes in pain level or No management Left Footwear Regular Shoe Right Footwear Regular Shoe Pain Scale: 0-10 Numeric Is Patient Pain Free? Yes - Nurse 1 - General Ulcer Measurement Start: 03/14/22 10:07 Freq: Status: Active Protocol: Activity Type Activity Date Activity User E-sign Co-sign Detail Recorded Client Recorded Date Recorded By Document 03/14/22 10:07 ROGELIO [id number] 03/14/22 10:09 ROGELIO 03/14/22 10:07 Wound Center Nurse 1 #5 L 2nd finger -Current Size (cm) - Length 0.5 -Current Size (cm) - Width 0.6 -Current Size (cm) - Depth 0.1 -Total Square Cm 0.30 -Exudate Amt Small -Exudate Type Yellow/Green -Wound Margin Distinct, Outline Attached -Necrosis Amt Large (67-100%) -Necrotic Tissue Type Adherent Slough -Texture (Antonieta-wound Skin Appearance) Assessed, Scarring -Moisture (Antonieta-wound Skin Appearance) No Abnormality, Assessed -Color (Antonieta-wound Skin Appearance) No Abnormality, Assessed -Temperature (Antonieta-wound Skin No Abnormality Appearance) (Pt Warm) -Tenderness on Palpation (Antonieta-wound No Skin Appearance) -Ulcer Cleansing Rinsed/ Irrigated with Saline -Foul Odor after Cleansing No -Anesthetic Used 5% Lidocaine Gel WC - Nurse 3 - General Ulcer D/C NN Start: 03/14/22 10:07 Freq: Status: Active Protocol: Activity Type Activity Date Activity User E-sign Co-sign Detail Recorded Client Recorded Date Recorded By Document 03/14/22 10:58 MW [id number] 03/14/22 10:59 MW 03/14/22 10:58 Pain Scale: 0-10 Numeric Is Patient Pain Free? Yes Teaching: Wound Center Discharge Instructions -Person Taught Patient -Teaching Method Discussion -Response to teaching Verbalize understanding WC - Visit Discharge Discharge Condition Stable Ambulatory Status Ambulatory Transportation Private Auto Accompanied by Medication Reconcilliation completed & No provided to patient/care provider Clinical Summary of Care Provided Yes Notes: DISCHARGE FROM WOUND CLINIC. [facility] TO [facility]. 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
== END 2022-03-15 14:51 | disposition home or self-care (01) ==
LOC: WC 09:54
PROVIDERS: PCP Family Medicine; Referring Provider Nurse Practitioner; Visit Provider Nurse Practitioner
DX: M06.9 Rheumatoid arthritis, unspecified (principal); M1A.9XX1 Chronic gout, unspecified, with tophus (tophi)
CPT/HCPCS: 99212; G0463

== ENCOUNTER 2023-01-25 17:27 | Inpatient (IN) | payer MEDICARE, SELFPAY ==
[2023-01-25 06:00] VITALS: BMI 20.3
[2023-01-25 17:46] VITALS: BP 151/69; PULSE 90; RESP 18; TEMP 36.7; O2SAT 93
--- NOTE | 2023-01-25 18:12 | PCM.HP.STD ---
[facility] - General General Date of Admission: 01/25/23 Date of Service: 01/25/23 Chief Complaint: Debility due to a fall from ground level with fracture of the dens. HPI Narrative ESTHER BUSTILLOS, is a 82-year-old F with a past medical history of hypertension, GERD, watermelon stomach, anxiety, B12 deficiency, osteoporosis, gout, paroxysmal atrial fibrillation (has never been on anticoagulation) and scleroderma. Danni missed the bed when getting back in the bed after a trip to the bathroom in the occupational therapy program director of 01/14/23. She fell on her face and her head snapped back with hyperextension of the neck. She was unable to stand on her own and she told her family she needed to go to the ED. EMS took her to [facility] and she underwent CT imaging of the face, head, maxillofacial area and the C-spine. She had plain XRAYS of the chest, pelvis and right elbow. She was found to have a type III odontoid fracture, bilateral nasal bone fractures and a nondisplaced olecranon fracture of the right elbow. The RUE was placed in a splint and she was transferred to in [place]. She was seen and evaluated by the trauma service and was placed in an Todd collar. Plastic surgery was consulted for the nasal fractures and orthopedic surgery for the fracture of the right olecranon. She was also seen by cardiology for a prolonged QT and Flecainide was stopped. She is going to follow up with Dr. Mccall from cardiology post discharge from rehab. She was taken to surgery on 01/17/[address] Calvo for a fusion of C1-C2. Postoperatively she was seen by speech therapy, Occupational Therapy and physical therapy. Admission to an acute rehab unit was recommended at discharge from [facility]. Esther was admitted to [facility] acute rehab on 01/25/23 for 3 hours of therapy daily to restore function/independence at or near her level prior to the dens fracture. [facility] Medical History (Updated 01/28/23 @ 14:[address] Ольга Jacome DO) Anxiety B12 deficiency Gastric reflux History of iron deficiency Hypertension Hyperuricemia Paroxysmal atrial fibrillation Raynauds disease Sarcoma Scleroderma Watermelon stomach Home Medications acetaminophen 500 mg capsule 500 mg PO Q6H PRN Pain 02/22/21 [History Last Taken Unknown] cyanocobalamin (vitamin B-12) 2,500 mcg sublingual lozenge 2,500 mcg sublingual DAILY 02/22/21 [History Last Taken Unknown] flecainide 50 mg tablet 50 mg PO Q12H 02/22/21 [History Last Taken Unknown] gabapentin 100 mg capsule 100 mg PO DAILY 02/22/21 [History Last Taken Unknown] hydroxychloroquine 200 mg tablet 200 mg PO BID Scleroderma 02/22/21 [History Last Taken Unknown] loratadine 10 mg capsule 10 mg PO DAILY Allergies 02/22/21 [History Last Taken Unknown] metoprolol tartrate 25 mg tablet 25 mg PO BID BP 02/22/21 [History Last Taken Unknown] nifedipine 30 mg tablet,extended release 30 mg PO DAILY BP 02/22/21 [History Last Taken Unknown] pantoprazole 40 mg tablet,delayed release 40 mg PO DAILY GERD 02/22/21 [History Last Taken Unknown] tramadol 50 mg tablet 50 mg PO Q12H PRN PRN Pain 02/22/21 [History Last Taken Unknown] allopurinol 300 mg tablet 300 mg PO DAILY Gout 02/07/22 [History Last Taken Unknown] alendronate 70 mg tablet 70 mg PO TU Supplement 01/25/23 [History Last Taken Unknown] docusate sodium 100 mg capsule 100 mg PO BID Constipation 01/25/23 [History Last Taken Unknown] polyethylene glycol 3350 17 gram oral powder packet (Miralax) 17 g PO DAILY PRN Constipation 01/25/23 [History Last Taken Unknown] Allergy/AdvReac Type Severity Reaction Status Date / Time nitrofurantoin Allergy Hives Verified 09/15/20 07:27 [From Macrodantin] Penicillins Allergy Hives Verified 09/15/20 07:27 sulfamethoxazole Allergy Hives Verified 02/22/21 10:35 trimethoprim [From Bactrim] Allergy Hives Verified 02/22/21 10:35 Family History other other (Not sertinent to the current problem.) Surgical History (Updated 01/25/23 @ 18:[address] Ольга Jacome DO) Cervical vertebral fusion History of appendectomy History of hysterectomy Surgical History no surgical history no surgical history Social History (Updated 01/25/23 @ 18:[address] Ольга Jacome DO) adopted: No household members: spouse Smoking Status: Never smoker alcohol intake: current alcohol intake frequency: 0-2 drinks per day Alcohol type: wine substance use type: does not use ROS Constitutional Constitutional: Denies anorexia, change in weight, chills, fatigue, fever(s), night sweats or weakness Eyes Eyes: Denies blurry vision, change in vision, eye pain or loss of vision ENT HEENT: Reports dysphagia and other Details: Mild dysphagia....... chops her food into very small bites ; Denies abnormal hearing, headache(s), hearing loss, nasal congestion or sore throat Cardiovascular Cardiovascular: Denies chest pain, dyspnea on exertion, edema, lightheadedness, orthopnea, palpitations, paroxysmal nocturnal dyspnea or syncope Respiratory/Chest Respiratory/Chest: Denies cough, dyspnea, shortness of breath at rest, shortness of breath with exertion or wheezing Gastrointestinal Gastrointestinal: Denies abdominal pain, constipation, diarrhea, dyspepsia, hematemesis, hematochezia, nausea or vomiting Genitourinary Genitourinary: Denies dysuria, hematuria, nocturia, urinary frequency, urinary hesitancy, urinary incontinence or urinary urgency Musculoskeletal Musculoskeletal: Reports joint pain and neck pain; Denies back pain or joint swelling Integumentary Integumentary: Reports other Details: Posterior cervical incision related to recent cervical spine fusion due to fracture of the dens ; Denies rash Neurologic Neurologic: Denies confusion, disequilibrium, dizziness, focal weakness, headache(s), paresthesias, seizures or tremor(s) Psychiatric Psychiatric: Reports anxiety; Denies depression, homicidal ideation or suicidal ideation Endocrine Endocrinology: Denies change in body appearance, polydipsia or polyuria Hematologic/Lymphatic Hematologic/Lymphatic: Denies easy bleeding, easy bruising or lymphadenopathy Allergic/Immunologic Allergic/Immunologic: Denies rhinitis, eczemia or asthma Physical Exam Const alert, oriented x3, no apparent distress and healthy appearing General Appearance: cooperative, comfortable, well kempt and well developed HEENT normocephalic and hearing grossly normal bilaterally HEENT Narrative: Very dry mucous membranes Eyes PERRL, EOMs intact bilaterally, conjunctivae normal and no scleral icterus Eyes Narrative: No discharge from the eyes and no mattering of the eyelashes. No visual field cuts Neck no lymphadenopathy, no JVD and no carotid bruits Neck Narrative: posterior incision of the cervical spine due to fusion Resp normal respiratory effort, normal air movement, no retractions, no use of accessory muscles and clear to auscultation bilaterally Effort and Inspection: able to speak in complete sentences Cardio regular rate and regular rhythm Cardio Narrative: Systolic MM at 2RICS, apex and LLSB. Widely split S1, no gallop. GI normal to inspection, nondistended, normoactive bowel sounds, soft to palpation, non-tender and no masses GI Narrative: No guarding with palpation no CVA tenderness Extremity normal capillary refill, no calf tenderness and no pedal edema Extremity Narrative: She has multiple hammer toes due to scleroderma. she has flexion contractures of multiple fingers due to scleroderma and has small scabs over the PIP of a few fingers on the R hand. Both hands and both feet are warm to touch with intact sensation. The RUE distal to the elbow is in a soft cast and she is NWB on the RUE. Radial pulses are strong. Skin Skin Narrative: No rashes, no skin breakdown. Cervical incision is intact with no erythema and no DC. Skin over the face and the digits of the hands and feet is tight with no wrinkling (except for around her mouth) due to scleroderma. Neuro oriented x3, CN's II-XII intact bilaterally, moves all extremities, no focal motor deficits and no sensory deficits noted Psych cooperative and affect normal Appearance: grossly normal, appropriate and well kempt Attitude: calm Results Lab / Micro Data Result Diagrams: 01/26/23 08:26 01/26/23 08:26 Assessment & Plan Assessment/Plan (1) Debility: (2) History of fall: (3) Closed dens fracture: (4) Cervical vertebral fusion: (5) Nasal bone fractures: (6) Fracture of olecranon process, right, closed: (7) Scleroderma: (8) Chronic pain disorder: (9) Gastric reflux: (10) Watermelon stomach: (11) Paroxysmal atrial fibrillation: (12) Anxiety: (13) B12 deficiency: (14) Hyperuricemia: (15) Osteoporosis: (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 She has a history of watermelon stomach and is at increased risk for gastrointestinal bleeding. She has never been on anticoagulation for paroxysmal atrial fibrillation. Follow up with electrophysiology, surgeon, PCP and Ortho following DC from IP Rehab AM lab including CMP, CBC, Mag, uric acid and Phos has been ordered Pt and family wants Esther to follow up with Dr. Menezes for the elbow fracture. she will follow up with Dr. Mccall from EP for PAF and with Dr. Tello for the cervical fusion. Will contact Dr. Menezes to see if he will accept this pt for follow up. I informed the patient and her dtr that Dr. Menezes does not see patients on rehab so follow up with him would be in the office post DC from rehab. Charges/Coding Visit Charges Inpatient E&M: 42501 Init Hosp L3
[2023-01-25 20:29] VITALS: BMI 20.3
[2023-01-25 20:56] VITALS: BP 151/69; PULSE 90
[2023-01-25] MEDS: Hydroxychloroquine 200 MG Tablet PO (20:56)
[2023-01-25] MEDS: Metoprolol Tartrate 25 MG Tablet PO (20:56)
[2023-01-25] MEDS: traMADol 50 MG Tablet PO (20:56)
[2023-01-25 21:00] VITALS: BP 147/63; PULSE 88; RESP 18; TEMP 36.8; O2SAT 92
[2023-01-26 07:55] VITALS: BP 134/52; PULSE 87; RESP 18; TEMP 36.5; O2SAT 100
[2023-01-26] MEDS: Pantoprazole Sodium 40 MG Tablet PO (08:15)
[2023-01-26] MEDS: Ensure Plus High Protein 120 ML LIQUID PO ×2 (08:15→12:36)
[2023-01-26] MEDS: Allopurinol 300 MG Tablet PO (08:15)
[2023-01-26] MEDS: Loratadine 10 MG Tablet PO (08:15)
[2023-01-26 08:55] LABS: Hematocrit 37.1 % (37-47); Hemoglobin 11.3 g/dL (12.0-15.0); Mean Corp Hgb Conc 30.5 g/dL (32-36); Mean Corpuscular Hgb 31.3 pg (27.0-32.0); Mean Corpuscular Volume 102.8 fL (81-99); Mean Platelet Vol. 9.1 fl (6.2-12.0); Platelet Count 517 K/mm3 (150-450); RBC Distribution Width CV 15.7 % (11.6-14.6); RBC Distribution Width SD 58.1 fl (35.1-43.9); Red Blood Count 3.61 M/mm3 (4.2-5.4)
[2023-01-26 09:00] VITALS: O2SAT 99
[2023-01-26 09:17] LABS: ALB/GLOB Ratio 0.7 RATIO (0.9-2.4); AST(SGOT) 19 U/L (15-37); Alanine Aminotransfer ALT/SGPT 19 U/L (13-56); Albumin, Serum 2.9 g/dL (3.2-5.0); Alkaline Phosphatase 84 U/L (45-117); Anion Gap 9 (5-15); BUN 14 mg/dL (7-18); Calcium,Total 9.2 mg/dL (8.5-10.1); Chloride 105 mmol/L (98-107); Creatinine, Serum 0.74 mg/dL (0.55-1.02); EST Glomerular Filtration Rate 80 mL/min (>60); Est Glom Filt Rate - Afr Amer 97 mL/min (>60); Estimated Creatinine Clearance 31.15 ml/min; Globulin 4.4 g/dL (2.2-4.2); Glucose 113 mg/dL (74-106); Magnesium 2.1 mg/dL (1.6-2.6); Phosphorus 2.9 mg/dL (2.5-4.9); Potassium 4.1 mmol/L (3.5-5.1); Protein, Total 7.3 g/dL (6.4-8.2); Sodium Level 139 mmol/L (136-145); Uric Acid 2.4 mg/dL (2.6-6.0)
[2023-01-26 09:23] VITALS: BP 126/72; PULSE 90
[2023-01-26] MEDS: NIFEdipine 30 MG Tablet PO (09:23)
[2023-01-26] MEDS: Metoprolol Tartrate 25 MG Tablet PO ×2 (09:23→21:19)
[2023-01-26] MEDS: Hydroxychloroquine 200 MG Tablet PO ×2 (09:23→21:19)
[2023-01-26] MEDS: Acetaminophen 500 MG Tablet PO (12:40)
[2023-01-26 21:14] VITALS: BP 129/60; PULSE 78; RESP 18; TEMP 37.1; O2SAT 97
[2023-01-26 21:19] VITALS: PULSE 78
[2023-01-26] MEDS: traMADol 50 MG Tablet PO (21:19)
[2023-01-27 08:25] VITALS: BP 133/63; PULSE 85; RESP 14; TEMP 37.2; O2SAT 95
[2023-01-27] MEDS: Hydroxychloroquine 200 MG Tablet PO ×2 (09:16→20:19)
[2023-01-27] MEDS: Pantoprazole Sodium 40 MG Tablet PO (09:16)
[2023-01-27] MEDS: Allopurinol 300 MG Tablet PO (09:17)
[2023-01-27] MEDS: Loratadine 10 MG Tablet PO (09:17)
[2023-01-27] MEDS: NIFEdipine 30 MG Tablet PO (09:17)
[2023-01-27 09:18] VITALS: PULSE 85
[2023-01-27] MEDS: Metoprolol Tartrate 25 MG Tablet PO ×2 (09:18→20:19)
[2023-01-27] MEDS: traMADol 50 MG Tablet PO ×2 (09:22→20:54)
[2023-01-27 19:38] VITALS: BP 137/52; PULSE 79; RESP 17; TEMP 36.7; O2SAT 97
[2023-01-27 20:19] VITALS: BP 137/52; PULSE 79
[2023-01-27] MEDS: Docusate Sodium 100 MG Capsule PO (20:19)
[2023-01-28 07:40] VITALS: BP 149/64; PULSE 81; RESP 14; O2SAT 99
[2023-01-28] MEDS: NIFEdipine 30 MG Tablet PO (07:42)
[2023-01-28 07:43] VITALS: PULSE 77
[2023-01-28] MEDS: Docusate Sodium 100 MG Capsule PO (07:43)
[2023-01-28] MEDS: Metoprolol Tartrate 25 MG Tablet PO ×2 (07:43→21:19)
[2023-01-28] MEDS: Hydroxychloroquine 200 MG Tablet PO ×2 (07:43→21:18)
[2023-01-28] MEDS: Pantoprazole Sodium 40 MG Tablet PO (07:43)
[2023-01-28] MEDS: Loratadine 10 MG Tablet PO (07:43)
[2023-01-28] MEDS: Allopurinol 300 MG Tablet PO (07:43)
[2023-01-28] MEDS: Ensure Plus High Protein 120 ML LIQUID PO (07:44)
[2023-01-28] MEDS: traMADol 50 MG Tablet PO ×2 (09:13→21:18)
--- NOTE | 2023-01-28 12:20 | CASEMGMT ---
Patient agreeable to have provide copies of advanced directives. Juju Jimenez, [employer] CIRCUIT DESIGNER
--- NOTE | 2023-01-28 14:45 | PCM.RU.PYE ---
Admission Information Primary Diagnosis:: Physical debility secondary to a fall resulting in right olecranon fracture, bilateral nasal bone fractures and a fracture of the odontoid process. She is status post fusion of C1-C2 at [facility]. Status Changes from Prescreening?: No changes Identified Actual Problem List:: Falls, Skin Intergrity, Pain, ALteration in Cmfrt, Alteration in Sleep, Mobility Impaired, Self Care Deficit and Alteration-Leisure Activ. Potential Problem List:: DVT, Bleeding, Infection, UTI, Aspiration, Falls, Skin Integrity and Depression Risk of Complications DVT: JACOBO Hose and Sequential Compression Device Bleeding: Monitor Lab Values, Nursing to Teach Precautions for anti-coagulation therapy., Wound, if applicable, to be assessed every shift. and Stroke patients assessed for lethargy or change in status. Infection: Clinical Staff to Monitor for S/S of infection: and S/S of infection include fever, redness, warmth, etc. Urinary Tract Infection: Monitor for frequency, burning, discomfort, or incontinence. and Nursing will obtain urine sample for urinalysis and C&S when ordered. Aspiration: Clinical staff will monitor for coughing, drooling, congestion., Speech will evaluate swallowing and dsyphasia. and Nursing will monitor patient swallowing during meals. Falls: Patient will be evaluated for Fall Precautions and Patient will be placed on Fall Precautions as indicated per protocol. Skin Breakdown: Nursing will assess skin daily using assessment tool. and Nursing will place on Skin Breakdown Precautions as indicated. Pain: Clinical staff will assess patient's pain level per protocol., Medications will be given, if needed, and the pain level reassessed. and Other methods: Massage, distraction, decrease stimulus, etc. used PRN. Plan of Care Patient requires physician specializing in physical medicine and rehab oversight to provide close medical supervision of rehab issues including: Pain Management, Sleep Problems, Bowel and Bladder, Medical and co-morbidity Management, DVT prophylaxis, Rehabilitation Leadership and Coordination of treatment team Patient needs Physical Therapy: For a minimum of 1 hour and At least 5 out of 7 days Patient needs Physical Therapy to improve:: Mobility, Strengthening, Transfers, Stretching, ROM, Endurance, Stairs, Gait and Balance Patient needs Occupational Therapy: For a minimum of 1 hour and At least 5 out of 7 days Patient needs Occupational Therapy to improve ADL's incl.: Eating, Grooming, Bathing, Dressing, Toileting, Toilet transfers, Community Reintegration, Higher functioning activities, Household tasks, Adaptive Equipment, Splinting and Other activities as determined Patient requires speech therapy: For a minimum of 1 hour and At least 5 out of 7 days Patient requires speech therapy for: Swallowing, Cognition, Language Skills and Compensatory Strategies Patient requires 24/7 Rehabilitation Nursing for: Pain Issues, Identifying and preventing risk factors, Monitoring and reporting current medical conditions, Assisting with ambulation, transfer, and all ADL's, Teaching patients about disease process and medications, Family teaching, Providing safe environment, Bowel and Bladder Issues, Skin integrity and Medication Management Patient needs Barge Pilot/ Case Management for: Discharge Planning, Arranging Home Equipment or Services and Family Interventions Patient needs Dietary and Nutrition Services for: Adequate Nutrition, Nutritional Supplements and Nutritional Education Goals Patient will remain: free from falls and or injury at time of discharge. Patient will perform bed mobility at: MOD I level of assist. Patient will complete transfers from bed to chair at: MOD I level of assist. Patient will ambulate: with LRD and - (200 ft with SC without cues or LOB) Patient will complete upper body dressing at: MOD I level of assist. Patient will complete lower body dressing at: MOD I level of assist. Patient will complete toileting at: MOD I level of assist. Patient will perform bathing at: MOD I level of assist. Patient will complete grooming at: MOD I level of assist. Patient will complete home management skills at: MOD I level of assist. Patient will achieve: - (1 curb step with a straight cane at SBA ) Patient will have pain level of: of 3 or less Patient's skin will: remain intact Patient will receive: adequate nutrition. Discharge Planning Estimated Length of stay (days): 21 Anticipated D/C Destination: Home w/ family or friends Was Preadmission Assessment Accurate?: Yes
--- NOTE | 2023-01-28 15:45 | RAD_ITS ---
EXAM: XR RIGHT ELBOW COMPLETE, 3 OR MORE VIEWS CLINICAL INDICATION: recent fracture of olecranon. TECHNIQUE: Frontal, lateral and oblique views of the right elbow. COMPARISON: No relevant prior studies available. FINDINGS: BONES/JOINTS: There is a fracture through the olecranon. There is a plaster splint in place. The fracture fragments are in anatomic alignment. There is no displacement of the anterior or posterior fat pads. Preservation of the joint space. No destructive or sclerotic lesions. SOFT TISSUES: Unremarkable. No soft tissue swelling or gas. No radiopaque foreign body. RAD/Elbow min 3 Views IMPRESSION: Casting of olecranon fracture. Fracture fragments are in anatomic alignment. Electronically Signed: Cedrick Salazar MD at 20:15 EDT ,
--- NOTE | 2023-01-28 16:14 | PCM.PROGNOTE ---
Subjective Subjective Afebrile VSS Maintaining appropriate oxygen saturation on RA Oral intake is good for food and not quite so good for fluid Discussed with nursing - no problems that need addressed Reviewed the PT/OT/ST notes Medication list reviewed. Taking tramadol 50 mg 1-2 times daily for pain. All lab from 01/26/2023 was personally reviewed. White blood cell count was elevated at 15 and this may be due to stress or she may have been on steroids immediately after the dens fracture to prevent swelling. Hemoglobin is 11.3. MCV is elevated at 102.8. RDW is increased and the platelets are mildly increased 517,000. Sodium, potassium and calcium are all within normal limits. BUN is 14 with a creatinine of 0.74. GFR is 80 however the estimated creatinine clearance is only 31. Uric acid is low at 2.4. Phos and mag are within normal limits. LFTs are unremarkable. Kelley tells me that she is sleeping well and her appetite is good. Pain is adequately controlled. Kelley denies lightheadedness, vertigo, CP, SOB at rest, SOB with exertion, cough, nausea, vomiting, abd pain, diarrhea, constipation, dysuria, calf pain and ankle swelling. She gets fatigued with therapy and takes cat naps during the day. Objective Data Objective Data Vital Signs: Vital Signs Temp Pulse Resp BP Pulse Ox O2 Del Method 98.0 F 77 14 149/64 H 99 Room Air 01/27/23 19:38 01/28/23 07:43 01/28/23 07:40 01/28/23 07:40 01/28/23 07:40 01/28/23 07:42 Oxygen Delivery Method Room Air Weight: 104 lb 0.931 oz Body Mass Index (BMI) 20.3 Intake & Output: Intake and Output for Last 24 Hours 01/26/23 01/27/23 01/28/23 23:59 23:59 23:59 Intake Total 1040 / 1040 660 / 660 Output Total 700 / 700 Balance -700 / -700 1040 / 1040 660 / 660 Lab / Micro Data Result Diagrams: 01/26/23 08:26 01/26/23 08:26 Physical Exam Const alert, oriented x3 and no apparent distress General Appearance: cooperative and comfortable Eyes PERRL Resp normal respiratory effort and clear to auscultation bilaterally Effort and Inspection: able to speak in complete sentences Cardio regular rate and regular rhythm Cardio Narrative: Systolic MM at 2RICS, apex and LLSB. Widely split S1, no gallop. GI normal to inspection, nondistended, normoactive bowel sounds, soft to palpation, non-tender and no masses GI Narrative: No guarding with palpation Extremity no calf tenderness and no pedal edema Skin Skin Narrative: No rashes, no skin breakdown. Cervical incision is intact with no erythema and no DC. Skin over the face and the digits of the hands and feet is tight with no wrinkling (except for around her mouth) due to scleroderma. 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 Continue therapy 2. Check a Hemoccult stool 3. Check B12, folate, TSH and a retake count. 4. She is on Plaquenil and not currently on a folate supplement. After the folate level is drawn will add a folic acid supplement. 5. X-ray of the right elbow today. Dr. Menezes will except her as a patient but if the surgery is complicated will defer to one of his partners, Dr. Osorio. 6. Her uric acid level is only 2.4......likely does not need 300 mg of Allopurinol daily. Will decrease the allopurinol to 200 mg and recheck UA in 1 month. She is on Allopurinol for hyperuricemia with gout with tophi and goal of therapy is usually less than 5. Charges/Coding Visit Charges Inpatient E&M: 94566 Subs Hosp L2
[2023-01-28 20:02] VITALS: BP 132/56; PULSE 83; RESP 17; TEMP 36.6; O2SAT 96
[2023-01-28 21:19] VITALS: BP 132/56; PULSE 83
[2023-01-28] MEDS: Menthol/Lanolin/Calamine/Znox 113 GM Tube 1 APPLIC TOPICAL (21:24)
[2023-01-29] MEDS: Menthol/Lanolin/Calamine/Znox 113 GM Tube 1 APPLIC TOPICAL ×2 (05:42→21:41)
[2023-01-29] MEDS: Alendronate Sodium 70 MG Tablet PO (05:43)
[2023-01-29 07:48] VITALS: BP 146/61; PULSE 88
[2023-01-29] MEDS: NIFEdipine 30 MG Tablet PO (07:48)
[2023-01-29] MEDS: Pantoprazole Sodium 40 MG Tablet PO (07:48)
[2023-01-29] MEDS: Docusate Sodium 100 MG Capsule PO ×2 (07:48→21:25)
[2023-01-29] MEDS: Hydroxychloroquine 200 MG Tablet PO ×2 (07:48→21:25)
[2023-01-29] MEDS: Metoprolol Tartrate 25 MG Tablet PO ×2 (07:48→21:25)
[2023-01-29] MEDS: Loratadine 10 MG Tablet PO (07:48)
[2023-01-29] MEDS: Allopurinol 100 MG Tablet 200 MG PO (07:48)
[2023-01-29] MEDS: traMADol 50 MG Tablet PO ×2 (09:25→21:24)
[2023-01-29 09:29] VITALS: BP 146/61; PULSE 88; RESP 15; TEMP 36.3; O2SAT 98
[2023-01-29 20:00] VITALS: BP 134/61; PULSE 80; RESP 16; TEMP 36.5; O2SAT 93
[2023-01-29 21:25] VITALS: BP 134/61; PULSE 80
[2023-01-30] MEDS: Menthol/Lanolin/Calamine/Znox 113 GM Tube 1 APPLIC TOPICAL ×2 (05:27→21:16)
[2023-01-30 07:31] VITALS: BP 132/64; PULSE 78; RESP 15; TEMP 36.8; O2SAT 97
[2023-01-30] MEDS: Allopurinol 100 MG Tablet 200 MG PO (08:24)
[2023-01-30] MEDS: Loratadine 10 MG Tablet PO (08:24)
[2023-01-30] MEDS: NIFEdipine 30 MG Tablet PO (08:24)
[2023-01-30 08:25] VITALS: PULSE 78
[2023-01-30] MEDS: Hydroxychloroquine 200 MG Tablet PO ×2 (08:25→21:15)
[2023-01-30] MEDS: Pantoprazole Sodium 40 MG Tablet PO (08:25)
[2023-01-30] MEDS: Metoprolol Tartrate 25 MG Tablet PO ×2 (08:25→21:15)
[2023-01-30] MEDS: Docusate Sodium 100 MG Capsule PO ×2 (08:25→21:15)
[2023-01-30 20:18] VITALS: BP 107/51; PULSE 84; RESP 18; TEMP 36.8; O2SAT 98
[2023-01-30] MEDS: traMADol 50 MG Tablet PO (21:14)
[2023-01-30 21:15] VITALS: BP 107/51; PULSE 84
[2023-01-31] MEDS: Menthol/Lanolin/Calamine/Znox 113 GM Tube 1 APPLIC TOPICAL ×2 (05:12→21:20)
[2023-01-31 07:41] VITALS: BP 139/62; PULSE 78; RESP 16; TEMP 36.7; O2SAT 100
[2023-01-31] MEDS: Ensure Plus High Protein 120 ML LIQUID PO (08:34)
[2023-01-31] MEDS: Docusate Sodium 100 MG Capsule PO ×2 (08:34→21:19)
[2023-01-31] MEDS: Loratadine 10 MG Tablet PO (08:34)
[2023-01-31 08:35] VITALS: BP 139/62; PULSE 78
[2023-01-31] MEDS: Allopurinol 100 MG Tablet 200 MG PO (08:35)
[2023-01-31] MEDS: Pantoprazole Sodium 40 MG Tablet PO (08:35)
[2023-01-31] MEDS: Metoprolol Tartrate 25 MG Tablet PO ×2 (08:35→21:19)
[2023-01-31] MEDS: NIFEdipine 30 MG Tablet PO (08:35)
[2023-01-31] MEDS: Hydroxychloroquine 200 MG Tablet PO ×2 (08:35→21:21)
[2023-01-31] MEDS: traMADol 50 MG Tablet PO ×2 (09:01→21:17)
[2023-01-31 11:29] VITALS: O2SAT 94
--- NOTE | 2023-01-31 12:22 | PCM.PROGNOTE ---
Subjective Subjective Danni was seen on team rounds today. Family was present in the room and all their questions were answered to their satisfaction. Afebrile VSS Maintaining appropriate oxygen saturation on RA Oral intake is good Discussed with nursing - no problems that need addressed Reviewed the PT/OT/ST notes Medication list reviewed. Taking 50 mg of tramadol 1-2 times daily for pain. She tells me her pain is adequately controlled. Danni denies pain in the right upper extremity. She denies chest pain, shortness of breath, palpitations, lightheadedness, nausea/vomiting/abdominal pain, dysuria and calf tenderness. She complains of the cast being heavy but, does not want a sling. She denies cephalgia, stiff neck, lightheadedness, nausea/vomiting/abdominal pain, dysuria, palpitations and calf tenderness. Objective Data Objective Data Vital Signs: Vital Signs Temp Pulse Resp BP Pulse Ox O2 Del Method 98.0 F 78 16 139/62 H 94 Room Air 01/31/23 07:41 01/31/23 08:35 01/31/23 07:41 01/31/23 08:35 01/31/23 11:29 01/31/23 11:29 Oxygen Delivery Method Room Air Weight: 104 lb 0.931 oz Body Mass Index (BMI) 20.3 Intake & Output: Intake and Output for Last 24 Hours 01/29/23 01/30/23 01/31/23 23:59 23:59 23:59 Intake Total 1020 / 1020 840 / 840 420 / 420 Output Total 400 / 400 150 / 150 Balance 1020 / 1020 440 / 440 270 / 270 Lab / Micro Data Result Diagrams: 01/26/23 08:26 01/26/23 08:26 Physical Exam Const alert, oriented x3 and no apparent distress General Appearance: cooperative and comfortable Neck no lymphadenopathy, no JVD and no carotid bruits Resp normal respiratory effort, normal air movement and clear to auscultation bilaterally Effort and Inspection: able to speak in complete sentences Cardio regular rate and regular rhythm Cardio Narrative: Systolic MM at 2RICS, apex and LLSB. Widely split S1, no gallop. GI normal to inspection, nondistended, normoactive bowel sounds and non-tender GI Narrative: No guarding with palpation Extremity no calf tenderness and no pedal edema Skin Skin Narrative: No rashes, no skin breakdown. Cervical incision is intact with no erythema and no DC. Skin over the face and the digits of the hands and feet is tight with no wrinkling (except for around her mouth) due to scleroderma. 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 Continue therapy 2. she will follow up with Dr. Menezes for the elbow fracture and will also follow up with the surgeon who fused her neck. 3. Allopurinol was decreased to 200 mg daily because the UA is only 2.4. Will recheck prior to DC and make sure it is still under 5 in light of hx of tophaceous gout. Charges/Coding Visit Charges Inpatient E&M: 18055 Subs Hosp L2
--- NOTE | 2023-01-31 12:41 | CASEMGMT ---
Social Work IDT met with patient, and three daughters for care plan meeting. Discussed patient's progress in PT/OT/ST/SN. Educated to [facility] insurance with [employer] 02/01 and continued stay is not guaranteed with each review, and $325/day copay. Pt and family's goal is for pt to return home. can assist with minimal tasks. Will ReTeam weekly. SW to continue to follow for DC planning. Juju Jimenez, CYBER ENGINEER PATIENT CASE MANAGER
[2023-01-31 19:38] VITALS: BP 116/56; PULSE 78; RESP 16; TEMP 36.9; O2SAT 99
[2023-01-31 21:19] VITALS: PULSE 75
[2023-01-31 22:00] VITALS: PULSE 75; RESP 16; O2SAT 99
[2023-02-01] MEDS: Acetaminophen 500 MG Tablet PO (03:56)
[2023-02-01 06:00] VITALS: BMI 20.2
[2023-02-01 08:10] VITALS: BP 135/63; PULSE 88; RESP 17; TEMP 36.6; O2SAT 97
[2023-02-01] MEDS: Pantoprazole Sodium 40 MG Tablet PO (08:57)
[2023-02-01] MEDS: Ensure Plus High Protein 120 ML LIQUID PO ×3 (08:57→17:04)
[2023-02-01] MEDS: Allopurinol 100 MG Tablet 200 MG PO (08:57)
[2023-02-01 08:58] VITALS: BP 135/63; PULSE 88
[2023-02-01] MEDS: Hydroxychloroquine 200 MG Tablet PO ×2 (08:58→21:57)
[2023-02-01] MEDS: Metoprolol Tartrate 25 MG Tablet PO ×2 (08:58→21:57)
[2023-02-01] MEDS: Loratadine 10 MG Tablet PO (08:58)
[2023-02-01] MEDS: NIFEdipine 30 MG Tablet PO (08:58)
[2023-02-01] MEDS: traMADol 50 MG Tablet PO ×2 (09:01→21:59)
[2023-02-01] MEDS: Menthol/Lanolin/Calamine/Znox 113 GM Tube 1 APPLIC TOPICAL ×2 (11:26→22:07)
--- NOTE | 2023-02-01 13:44 | PCM.PROGNOTE ---
Subjective Subjective Afebrile VSS Maintaining appropriate oxygen saturation on RA Oral intake is good. Fluid intake is a little erratic and some days less than 1,000. Discussed with nursing - no problems that need addressed Reviewed the PT/OT/ST notes - has been discharged from . She is able to do her swallowing exercises on her own without cues now. Medication list reviewed. Danni denies lightheadedness, vertigo, CP, SOB at rest, SOB with exertion, cough, nausea, vomiting, abd pain, diarrhea, constipation, dysuria, calf pain and ankle swelling. Tells me her pain is adequately controlled. She is having regular BM's. Objective Data Objective Data Vital Signs: Vital Signs Temp Pulse Resp BP Pulse Ox O2 Del Method 97.9 F 88 17 135/63 H 97 Room Air 02/01/23 08:10 02/01/23 08:58 02/01/23 08:10 02/01/23 08:58 02/01/23 08:10 02/01/23 08:10 Oxygen Delivery Method Room Air Weight: 103 lb 6.349 oz Body Mass Index (BMI) 20.2 Intake & Output: Intake and Output for Last 24 Hours 01/30/23 01/31/23 02/01/23 23:59 23:59 23:59 Intake Total 840 / 840 1510 / 1510 620 / 620 Output Total 400 / 400 800 / 800 600 / 600 Balance 440 / 440 710 / 710 Lab / Micro Data Result Diagrams: 01/26/23 08:26 01/26/23 08:26 Physical Exam Const alert, oriented x3 and no apparent distress Constitutional Narrative: Sitting in the recliner at the bedside. General Appearance: cooperative, comfortable, well kempt and well developed HEENT normocephalic and hearing grossly normal bilaterally Eyes PERRL, EOMs intact bilaterally, conjunctivae normal and no scleral icterus Eyes Narrative: No discharge from the eyes and no mattering of the eyelashes. No visual field cuts Neck no lymphadenopathy, no JVD and no carotid bruits Neck Narrative: posterior incision of the cervical spine due to fusion Resp clear to auscultation bilaterally Effort and Inspection: able to speak in complete sentences Cardio regular rate, regular rhythm and no gallops Cardio Narrative: Systolic MM at 2RICS, apex and LLSB. Widely split S1, no gallop. 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 she has flexion contractures of multiple fingers due to scleroderma and has small scabs over the PIP of a few fingers on the R hand. Both hands and both feet are warm to touch with intact sensation. The RUE distal to the elbow is in a soft cast and she is NWB on the RUE. Radial pulses are strong. Skin Skin Narrative: No rashes, no skin breakdown. Cervical incision is intact with no erythema and no DC. Skin over the face and the digits of the hands and feet is tight with no wrinkling (except for around her mouth) due to scleroderma. Wound Narrative: the posterior cervical incision is intact with no erythema, DC or increased warmth to touch around the incision. Some of the protective surgical glue/silcone? is still over the wound but u can see through it. Mild swelling only. Neuro CN's II-XII intact bilaterally, no focal motor deficits and no sensory deficits noted Psych affect normal Appearance: grossly normal, appropriate and well kempt Attitude: calm Assessment & Plan Assessment/Plan (1) Debility: (2) History of fall: (3) Closed dens fracture: (4) Cervical vertebral fusion: (5) Nasal bone fractures: (6) Fracture of olecranon process, right, closed: (7) Scleroderma: PLAN: Plan 1. Continue therapy 2. No changes to the drug regimen today 3. Repeat a BMP and CBC on Saturday. Charges/Coding Visit Charges Inpatient E&M: 25541 Subs Hosp L1
[2023-02-01 20:41] VITALS: BP 125/66; PULSE 83; RESP 14; TEMP 37.2; O2SAT 99
[2023-02-01 21:57] VITALS: PULSE 90
[2023-02-01] MEDS: Docusate Sodium 100 MG Capsule PO (21:57)
[2023-02-02] MEDS: Menthol/Lanolin/Calamine/Znox 113 GM Tube 1 APPLIC TOPICAL ×2 (05:37→21:48)
[2023-02-02 08:00] VITALS: BP 137/61; PULSE 72; RESP 16; TEMP 36.6; O2SAT 99
[2023-02-02 08:39] VITALS: PULSE 72
[2023-02-02] MEDS: Metoprolol Tartrate 25 MG Tablet PO ×2 (08:39→21:47)
[2023-02-02] MEDS: Allopurinol 100 MG Tablet 200 MG PO (08:39)
[2023-02-02] MEDS: Loratadine 10 MG Tablet PO (08:39)
[2023-02-02] MEDS: Pantoprazole Sodium 40 MG Tablet PO (08:39)
[2023-02-02] MEDS: Hydroxychloroquine 200 MG Tablet PO ×2 (08:39→21:47)
[2023-02-02] MEDS: Docusate Sodium 100 MG Capsule PO ×2 (08:39→21:47)
[2023-02-02] MEDS: NIFEdipine 30 MG Tablet PO (08:39)
[2023-02-02] MEDS: traMADol 50 MG Tablet PO ×2 (09:47→21:52)
[2023-02-02 19:48] VITALS: BP 109/44; PULSE 79; RESP 16; TEMP 36.8; O2SAT 97
[2023-02-02 21:47] VITALS: PULSE 76
[2023-02-02 22:00] VITALS: PULSE 79; RESP 16; O2SAT 97
[2023-02-03] MEDS: Menthol/Lanolin/Calamine/Znox 113 GM Tube 1 APPLIC TOPICAL ×2 (05:55→21:52)
[2023-02-03] MEDS: Ensure Plus High Protein 120 ML LIQUID PO ×2 (07:35→18:04)
[2023-02-03] MEDS: Loratadine 10 MG Tablet PO (07:35)
[2023-02-03 07:36] VITALS: PULSE 70
[2023-02-03] MEDS: Hydroxychloroquine 200 MG Tablet PO ×2 (07:36→21:51)
[2023-02-03] MEDS: NIFEdipine 30 MG Tablet PO (07:36)
[2023-02-03] MEDS: Allopurinol 100 MG Tablet 200 MG PO (07:36)
[2023-02-03] MEDS: Metoprolol Tartrate 25 MG Tablet PO ×2 (07:36→21:51)
[2023-02-03] MEDS: Pantoprazole Sodium 40 MG Tablet PO (07:36)
[2023-02-03 07:52] VITALS: BP 142/61; PULSE 72; RESP 16; TEMP 36.9; O2SAT 98
[2023-02-03] MEDS: traMADol 50 MG Tablet PO ×2 (10:00→22:00)
[2023-02-03 21:51] VITALS: PULSE 80
[2023-02-03] MEDS: Docusate Sodium 100 MG Capsule PO (21:51)
[2023-02-03 22:00] VITALS: BP 102/46; PULSE 80; RESP 16; TEMP 37.1; O2SAT 98
[2023-02-04 05:44] LABS: Hematocrit 33.9 % (37-47); Hemoglobin 10.5 g/dL (12.0-15.0); Mean Corpuscular Hgb 31.4 pg (27.0-32.0); Mean Corpuscular Volume 101.5 fL (81-99); Mean Platelet Vol. 9.2 fl (6.2-12.0); Platelet Count 278 K/mm3 (150-450); RBC Distribution Width CV 15.4 % (11.6-14.6); RBC Distribution Width SD 57.7 fl (35.1-43.9); Red Blood Count 3.34 M/mm3 (4.2-5.4); White Blood Count 9.2 K/mm3 (4.4-11.0)
[2023-02-04 06:03] LABS: Anion Gap 3 (5-15); BUN 27 mg/dL (7-18); BUN/Creat Ratio 35.5 RATIO (10-20); Calcium,Total 8.8 mg/dL (8.5-10.1); Chloride 109 mmol/L (98-107); Creatinine, Serum 0.76 mg/dL (0.55-1.02); EST Glomerular Filtration Rate 77 mL/min (>60); Est Glom Filt Rate - Afr Amer 94 mL/min (>60); Estimated Creatinine Clearance 31.15 ml/min; Glucose 91 mg/dL (74-106); Potassium 4.7 mmol/L (3.5-5.1); Sodium Level 141 mmol/L (136-145)
[2023-02-04 07:58] VITALS: PULSE 70
[2023-02-04] MEDS: Pantoprazole Sodium 40 MG Tablet PO (07:58)
[2023-02-04] MEDS: NIFEdipine 30 MG Tablet PO (07:58)
[2023-02-04] MEDS: Allopurinol 100 MG Tablet 200 MG PO (07:58)
[2023-02-04] MEDS: Hydroxychloroquine 200 MG Tablet PO ×2 (07:58→20:23)
[2023-02-04] MEDS: Metoprolol Tartrate 25 MG Tablet PO ×2 (07:58→20:23)
[2023-02-04] MEDS: Loratadine 10 MG Tablet PO (07:58)
[2023-02-04 08:47] VITALS: BP 146/65; PULSE 89; RESP 18; TEMP 36.6; O2SAT 96
--- NOTE | 2023-02-04 12:17 | PCM.PROGNOTE ---
Subjective Subjective Afebrile VSS Maintaining appropriate oxygen saturation on RA Oral intake is good Discussed with nursing - no problems that need addressed Reviewed the PT/OT/ST notes Medication list reviewed. All lab today was personally reviewed. White blood cell count is normal at 9.2. Hemoglobin is 10.5 which is down from 11.3 on 01/26/2023. MCV is elevated at 101.5. Platelets are within normal limits. Sodium is 141 and the potassium is 4.7. The BUN is 27, up from 14 on 01/26/2023 and creatinine is stable at 0.76. Sleeping well and has a good appetite. She denies Pain in the RUE. No calf pain, nausea, abd pain, dysuria, GRANT, lightheadedness, CP and SOB. Tells me they gave her a good workout today and she is ready for a nap. Objective Data Objective Data Vital Signs: Vital Signs Temp Pulse Resp BP Pulse Ox O2 Del Method 97.9 F 89 18 146/65 H 96 Room Air 02/04/23 08:47 02/04/23 08:47 02/04/23 08:47 02/04/23 08:47 02/04/23 08:47 02/04/23 08:47 Oxygen Delivery Method Room Air Weight: 103 lb 6.349 oz Body Mass Index (BMI) 20.2 Intake & Output: Intake and Output for Last 24 Hours 02/02/23 02/03/23 02/04/23 23:59 23:59 23:59 Intake Total 1110 / 1110 1510 / 1710 400 / 400 Output Total 1200 / 1200 1100 / 1500 970 / 970 Balance -90 / -90 410 / 210 -570 / -570 Lab / Micro Data Result Diagrams: 02/04/23 05:28 02/04/23 05:28 Labs: Laboratory Results - last 24 hr 02/04/23 05:28: WBC 9.2, RBC 3.34 L, Hgb 10.5 L, Hct 33.9 L, MCV 101.5 H, MCH 31.4, MCHC 31.0 L, RDW Std Deviation 57.7 H, RDW Coeff of Kai 15.4 H, Plt Count 278, MPV 9.2 02/04/23 05:28: Sodium 141, Potassium 4.7, Chloride 109 H, Carbon Dioxide 29.0, Anion Gap 3 L, BUN 27 H, Creatinine 0.76, Estim Creat Clear Calc 31.15, Est GFR (MDRD) Af Amer 94, Est GFR (MDRD) Non-Af 77, BUN/Creatinine Ratio 35.5 H, Glucose 91, Calcium 8.8 Physical Exam Const alert, oriented x3 and no apparent distress Constitutional Narrative: Lying in bed getting ready for a nap. She is cooperative and appropriate. HEENT HEENT Narrative: Very dry mucous membranes. This is a chronic problem with her and she also has dry eye and gets drops from her yarrow gatherer. Denies soreness but, does c/o a dry mouth. Neck General: trachea midline Resp normal respiratory effort and clear to auscultation bilaterally Effort and Inspection: Negative for tachypneic Cardio regular rate, regular rhythm and no gallops Cardio Narrative: no change in the MM. No ectopy GI normal to inspection, nondistended, normoactive bowel sounds, soft to palpation and non-tender Extremity no calf tenderness General Extremity: Negative for edema Skin General Skin Exam: no breakdown Rashes: no rashes Wound Narrative: The posterior cervical incision is intact with no erythema and no DC. The neck is supple and she denies cephalgia. Neuro CN's II-XII intact bilaterally, no focal motor deficits and no sensory deficits noted Psych affect normal Assessment & Plan Assessment/Plan (1) Debility: (2) History of fall: (3) Closed dens fracture: (4) Cervical vertebral fusion: (5) Nasal bone fractures: (6) Fracture of olecranon process, right, closed: (7) Scleroderma: PLAN: Plan 1. Continue therapy 2. Order a uric acid on the blood drawn this AM. 3. Order artificial tears every hour as needed-patient can have at bedside 4. Order artificial saliva 4 times daily while awake. Charges/Coding Visit Charges Inpatient E&M: 84648 Subs Hosp L2
[2023-02-04 14:58] LABS: Uric Acid 2.1 mg/dL (2.6-6.0)
[2023-02-04] MEDS: Ensure Plus High Protein 120 ML LIQUID PO (16:34)
[2023-02-04] MEDS: Saliva Substitute 237 ML BOTTLE 15 ML MUCOUS MEM (18:24)
[2023-02-04 20:17] VITALS: BP 140/75; PULSE 105; RESP 16; TEMP 36.6; O2SAT 98
[2023-02-04] MEDS: Menthol/Lanolin/Calamine/Znox 113 GM Tube 1 APPLIC TOPICAL (20:19)
[2023-02-04] MEDS: traMADol 50 MG Tablet PO (20:22)
[2023-02-04 20:23] VITALS: BP 140/75; PULSE 105
[2023-02-04] MEDS: Docusate Sodium 100 MG Capsule PO (20:23)
[2023-02-05] MEDS: Menthol/Lanolin/Calamine/Znox 113 GM Tube 1 APPLIC TOPICAL ×2 (05:36→20:33)
[2023-02-05 07:33] VITALS: BP 146/58; PULSE 85; RESP 18; TEMP 36.6; O2SAT 96
[2023-02-05] MEDS: Pantoprazole Sodium 40 MG Tablet PO (08:36)
[2023-02-05] MEDS: Hydroxychloroquine 200 MG Tablet PO ×2 (08:36→20:35)
[2023-02-05] MEDS: Docusate Sodium 100 MG Capsule PO (08:36)
[2023-02-05] MEDS: Allopurinol 100 MG Tablet 200 MG PO (08:36)
[2023-02-05 08:37] VITALS: PULSE 85
[2023-02-05] MEDS: NIFEdipine 30 MG Tablet PO (08:37)
[2023-02-05] MEDS: Loratadine 10 MG Tablet PO (08:37)
[2023-02-05] MEDS: Ensure Plus High Protein 120 ML LIQUID PO ×3 (08:37→18:20)
[2023-02-05] MEDS: Metoprolol Tartrate 25 MG Tablet PO ×2 (08:37→20:34)
[2023-02-05] MEDS: Saliva Substitute 237 ML BOTTLE 15 ML MUCOUS MEM ×4 (08:37→20:32)
[2023-02-05] MEDS: traMADol 50 MG Tablet PO ×2 (08:42→20:41)
--- NOTE | 2023-02-05 13:32 | PCM.PROGNOTE ---
Subjective Subjective Afebrile VSS Maintaining appropriate oxygen saturation on RA Oral intake is good Discussed with nursing -did not sleep well last night. She tells me that she had a lot on her mind. Her was having an epidural with Dr. Larsen today. Reviewed the PT/OT/ST notes Medication list reviewed. Danni denies lightheadedness, vertigo, CP, SOB at rest, SOB with exertion, cough, nausea, vomiting, abd pain, diarrhea, constipation, dysuria, calf pain and ankle swelling. She denies cephalgia and pain in the R elbow. Objective Data Objective Data Vital Signs: Vital Signs Temp Pulse Resp BP Pulse Ox O2 Del Method 97.8 F 85 18 146/58 H 96 Room Air 02/05/23 07:33 02/05/23 08:37 02/05/23 07:33 02/05/23 07:33 02/05/23 07:33 02/05/23 07:33 Oxygen Delivery Method Room Air Weight: 103 lb 6.349 oz Body Mass Index (BMI) 20.2 Intake & Output: Intake and Output for Last 24 Hours 02/03/23 02/04/23 02/05/23 23:59 23:59 23:59 Intake Total 1510 / 1710 1340 / 1340 800 / 800 Output Total 1100 / 1500 1370 / 1370 550 / 550 Balance 410 / 210 -30 / -30 250 / 250 Lab / Micro Data Result Diagrams: 02/04/23 05:28 02/04/23 05:28 Labs: Laboratory Results - last 24 hr 02/04/23 05:28: Uric Acid 2.1 L Physical Exam Const alert, oriented x3 and no apparent distress General Appearance: cooperative Eyes PERRL and EOMs intact bilaterally Neck supple Resp normal air movement and clear to auscultation bilaterally Effort and Inspection: Negative for tachypneic or labored Cardio regular rate, regular rhythm and no gallops GI normal to inspection, nondistended, normoactive bowel sounds, soft to palpation and non-tender Extremity no calf tenderness General Extremity: Negative for edema Skin General Skin Exam: no breakdown Rashes: no rashes Wound Narrative: The incision is intact with no erythema, no DC and no swelling. Assessment & Plan Assessment/Plan (1) Debility: (2) History of fall: (3) Closed dens fracture: (4) Cervical vertebral fusion: (5) Nasal bone fractures: (6) Fracture of olecranon process, right, closed: (7) Scleroderma: PLAN: Plan 1. Continue therapy 2. uric acid is 2.1 ( we decreased the allopurinol to 20 mg daily and the UA decreased from 2.4 to 2.1. Will continue with 200 mg daily. Charges/Coding Visit Charges Inpatient E&M: 82021 Subs Hosp L1
[2023-02-05 19:49] VITALS: BP 121/45; PULSE 86; RESP 16; TEMP 36.8; O2SAT 98
[2023-02-05 20:34] VITALS: BP 136/64; PULSE 89
[2023-02-06] MEDS: Alendronate Sodium 70 MG Tablet PO (05:12)
[2023-02-06] MEDS: Menthol/Lanolin/Calamine/Znox 113 GM Tube 1 APPLIC TOPICAL ×2 (05:12→20:19)
[2023-02-06 07:52] VITALS: BP 150/64; PULSE 88; RESP 15; TEMP 36.4; O2SAT 98
[2023-02-06] MEDS: Ensure Plus High Protein 120 ML LIQUID PO ×2 (09:31→16:47)
[2023-02-06] MEDS: traMADol 50 MG Tablet PO ×2 (09:31→20:24)
[2023-02-06] MEDS: Pantoprazole Sodium 40 MG Tablet PO (09:31)
[2023-02-06 09:32] VITALS: BP 150/64; PULSE 88
[2023-02-06] MEDS: Metoprolol Tartrate 25 MG Tablet PO ×2 (09:32→20:18)
[2023-02-06] MEDS: Docusate Sodium 100 MG Capsule PO ×2 (09:32→20:17)
[2023-02-06] MEDS: Loratadine 10 MG Tablet PO (09:32)
[2023-02-06] MEDS: Hydroxychloroquine 200 MG Tablet PO ×2 (09:32→20:17)
[2023-02-06] MEDS: Saliva Substitute 237 ML BOTTLE 15 ML MUCOUS MEM ×4 (09:32→20:18)
[2023-02-06] MEDS: Allopurinol 100 MG Tablet 200 MG PO (09:32)
[2023-02-06] MEDS: NIFEdipine 30 MG Tablet PO (09:32)
[2023-02-06 19:29] VITALS: BP 143/53; PULSE 79; RESP 14; TEMP 36.5; O2SAT 100
--- NOTE | 2023-02-06 20:00 | NURSING ---
Pt noted wearing matching purple pajama set. pt states, my granddaughter helped me wash up.
[2023-02-06 20:18] VITALS: PULSE 79
[2023-02-07 09:40] VITALS: BP 142/61; PULSE 77; RESP 14; TEMP 36.6; O2SAT 98
[2023-02-07] MEDS: Saliva Substitute 237 ML BOTTLE 15 ML MUCOUS MEM ×4 (09:44→21:12)
[2023-02-07] MEDS: Ensure Plus High Protein 120 ML LIQUID PO ×2 (09:44→16:01)
[2023-02-07 09:45] VITALS: BP 142/61; PULSE 77
[2023-02-07] MEDS: Hydroxychloroquine 200 MG Tablet PO ×2 (09:45→21:11)
[2023-02-07] MEDS: Loratadine 10 MG Tablet PO (09:45)
[2023-02-07] MEDS: Allopurinol 100 MG Tablet 200 MG PO (09:45)
[2023-02-07] MEDS: Docusate Sodium 100 MG Capsule PO ×2 (09:45→21:12)
[2023-02-07] MEDS: Metoprolol Tartrate 25 MG Tablet PO ×2 (09:45→21:11)
[2023-02-07] MEDS: Pantoprazole Sodium 40 MG Tablet PO (09:45)
[2023-02-07] MEDS: NIFEdipine 30 MG Tablet PO (09:46)
[2023-02-07] MEDS: traMADol 50 MG Tablet PO ×2 (09:53→21:18)
--- NOTE | 2023-02-07 13:49 | CASEMGMT ---
Social Work IDT met with patient, and children for Team meeting. Discussed patient's progress in PT/OT/ST/SN. Educated to [facility] insurance with [employer] 02/08 and continued stay is not guaranteed. DC plan remains DC home with and children support. SW to coordinate [facility] PT/OT. No DME needs. Will ReTeam weekly. SW to continue to follow. 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
--- NOTE | 2023-02-07 15:20 | PCM.PROGNOTE ---
Subjective Subjective Danni was seen on team rounds today. Her and 2 of her daughters were present in the room for rounds. All questions were answered to their satisfaction. Afebrile VSS Maintaining appropriate oxygen saturation on RA Oral intake is adequate Discussed with nursing - no problems that need addressed Reviewed the PT/OT/ST notes Medication list reviewed. Kelley denies lightheadedness, vertigo, CP, SOB at rest, SOB with exertion, cough, nausea, vomiting, abd pain, diarrhea, constipation, dysuria, calf pain and ankle swelling. She is sleeping OK and has a good intake. Objective Data Objective Data Vital Signs: Vital Signs Temp Pulse Resp BP Pulse Ox O2 Del Method 97.8 F 77 14 142/61 H 98 Room Air 02/07/23 09:40 02/07/23 09:45 02/07/23 09:40 02/07/23 09:45 02/07/23 09:40 02/07/23 09:40 Oxygen Delivery Method Room Air Weight: 103 lb 6.349 oz Body Mass Index (BMI) 20.2 Intake & Output: Intake and Output for Last 24 Hours 02/05/23 02/06/23 02/07/23 23:59 23:59 23:59 Intake Total 1160 / 1400 1560 / 1560 2030 / 2030 Output Total 850 / 850 1350 / 1350 575 / 575 Balance 310 / 550 210 / 210 1455 / 1455 Lab / Micro Data 02/04/23 05:28 02/04/23 05:28 Physical Exam Const alert, oriented x3 and no apparent distress General Appearance: cooperative Orientation / Consciousness: Negative for confused HEENT Mouth: dry mucous membranes Resp normal respiratory effort, normal air movement and clear to auscultation bilaterally Effort and Inspection: Negative for tachypneic or labored Cardio regular rate, regular rhythm and no gallops GI normal to inspection, nondistended, normoactive bowel sounds, soft to palpation and non-tender Extremity no calf tenderness General Extremity: Negative for edema Skin Wound Narrative: The incision remains intact with no kenny-incisional erythema, no discharge and no kenny-incisional swelling. Assessment & Plan Assessment/Plan (1) Debility: (2) History of fall: (3) Closed dens fracture: (4) Cervical vertebral fusion: (5) Nasal bone fractures: (6) Fracture of olecranon process, right, closed: (7) Scleroderma: PLAN: Plan 1. Continue therapy 2. No change to the drug regimen at this time. 3. Plans to go home at [place]. Charges/Coding Visit Charges Inpatient E&M: 46819 Subs Hosp L2
[2023-02-07 19:41] VITALS: BP 141/57; PULSE 83; RESP 17; TEMP 37.1; O2SAT 97
[2023-02-07 21:11] VITALS: PULSE 83
[2023-02-07] MEDS: Glycerin/Hypromellose/PEG400 15 ml Bottle 2 DRP EACH EYE (21:12)
[2023-02-07] MEDS: Menthol/Lanolin/Calamine/Znox 113 GM Tube 1 APPLIC TOPICAL (21:13)
[2023-02-07 22:00] VITALS: PULSE 83; RESP 17
[2023-02-08 05:49] VITALS: BMI 20.3
[2023-02-08 07:39] VITALS: BP 145/59; PULSE 81; RESP 16; TEMP 36.4; O2SAT 100
[2023-02-08] MEDS: Saliva Substitute 237 ML BOTTLE 15 ML MUCOUS MEM ×2 (08:01→13:34)
[2023-02-08 08:02] VITALS: BP 145/59; PULSE 81
[2023-02-08] MEDS: Allopurinol 100 MG Tablet 200 MG PO (08:02)
[2023-02-08] MEDS: Pantoprazole Sodium 40 MG Tablet PO (08:02)
[2023-02-08] MEDS: Ensure Plus High Protein 120 ML LIQUID PO (08:02)
[2023-02-08] MEDS: Loratadine 10 MG Tablet PO (08:02)
[2023-02-08] MEDS: Docusate Sodium 100 MG Capsule PO (08:02)
[2023-02-08] MEDS: NIFEdipine 30 MG Tablet PO (08:02)
[2023-02-08] MEDS: Metoprolol Tartrate 25 MG Tablet PO (08:02)
[2023-02-08] MEDS: Hydroxychloroquine 200 MG Tablet PO (08:02)
[2023-02-08] MEDS: traMADol 50 MG Tablet PO (08:05)
--- NOTE | 2023-02-08 11:54 | CASEMGMT ---
Social Work Insurance issued LCD 02/07, DC 02/08. SW phoned . agreeable to pick up operator today about 3-4 pm. requesting [facility] for DC services. SW phoned referral to [facility] for PT/OT. Confirmed no DME needs. SW updated IDT. Plan: DC home with 02/08, [facility] PT/OT TORRES RiosW
--- NOTE | 2023-02-08 13:47 | PCM.DC ---
Discharge Instructions Diet Discharge Diet: No restrictions Activity Discharge Activity: May Not Drive and Use Walker (When outside of the house and when on uneven surfaces would use a cane or a walker until you get stronger and have more exercise tolerance. ) Weight Bearing Status: No weight bearing (On the R arm. Full weight bearing on the legs. ) Dressing / Incision Call your doctor if your incision/area has: Continuous Slow Oozing, Sudden Increased Bleeding, Increased Pain/ Swelling, Increased Redness and Foul Smelling Discharge Call your doctor if you observe: Fever of 101 or Higher, Inability to urinate, Inability to have a bowel movement, Shortness of breath, Fainting spells, Swelling in the ankles, Chest pain, Increased palpitations (irregular heartbeat), Calf discomfort, Uncontrolled pain and - (Headaches, night sweats, shaking chills. ) Suture Line Care: Avoid Pulling/Pushing and Avoid Pinching/Bending Cleanse incision/area with: Soap & Water (and pat dry) Additional Dressing/Incision Instructions:: No dressing needed. Follow Up Care Please Follow Up With: Lee Norris When: within te next 7-10 days. You will also need to follow up with Dr. Menezes and The neurosurgeon. Test Results: Test results from this visit will be discussed in further detail at your follow-up appointment, if applicable. Pending Tests Upon Discharge: none Discharge Plan Admission Admit Date/Time: 01/25/23 17:27 Primary Reason for Your Visit: Debility due to a fall with fracture of the dens and R olecranon fracture Attending Provider: Ольга Jacome Primary Care Provider: Leeann Howard Instructions Patient Instructions: Caring for Your Incision Additional Instructions / Restrictions: 1. You were a ray of kasey in rehab and we all enjoyed having you around. I admire the way you deal with your chronic disease and keep plugging along. Having the surgery on your neck like you did is not only painful it takes a lot out of you and it will take 3-6 months to get your full strength back. Keep up with your exercises daily and don't stop moving. Don not sit for longer than 1 hour without getting up to take a short walk around the house. 2. I know that you walked without a can or a walker in rehab BUT, if you are outside the house I recommend you have a cane with you to help with balance, marjan if you are walking on uneven surfaces. 3. I checked your uric acid while you were in rehab and it was only 2.4. Usually with gouty arthritis with tophi we aim to keep the uric acid under 5. Allopurinol has a lot of side effects and these include rashes, nausea, vomiting, kidney failure, anemia, low platelets, hair loss etc. You were taking 300 mg daily at presentation to rehab and the uric acid was 2.4. I decreased the dose to 200 mg daily and the uric acid yesterday was 2.1. I would discuss this with your light oil operator at the next visit. You are anemia and the hemoglobin is 10.5......normal is 12-14. Scleroderma can also cause anemia and when I look back at your labs over the past few years you have been anemic for a while. 4. You should dry to drink more water. Women as they get older lose their sense of thirst and they don't like to drink a lot of fluids because they do not want to leak urine into their underwear. If you ever feel weak and lightheaded sit down and DRINK. I would like you to drink at least 1200 ml of fluids daily (that is 40 ounces). When you are dehydrated and you stand up your gravity takes your blood to your feet and this can deprive the brain of blood flow and you could pass out or have a stroke or TIA. They make underwear now that is specially made for women who have the leaking and they are made by a company called [employer].......this way you would not have to wear a thick pad which can be uncomfortable. 5. Do NOT overdo because you will get stiff and sore and then you will not want to to your exercises. Balance exercise with rest. 6. It was a pleasure meeting you and if you ever have a need for rehab in the future we will gladly have you back. If you or your family have any questions after leaving rehab please do not hesitate to call me. OFFICE: [phone] CELL: [phone] PS: Biotene is the artificial saliva we prescribed for you. It is available over the counter as a mouthwash, spray and lozenges at most pharmacies. There is an arthritis cream that the pharmacist from the hospital makes up and it contains Lidocaine, Voltaren and Baclofen (anesthetic, anti-inflammatory and muscle relaxer). I use it when my hands are hurting a lot and it works within minutes. I will give you a prescription and you can fill it if you want. Insurance doesn't pay for it but, a little goes a long way and it can really help with joint pain. Another thing you could try for your hands is a paraffin wax bath., they sell them on [employer] and it helps a lot of patients with arthritis. Discharge Orders/Prescriptions Prescriptions: New allopurinol 100 mg Tablet 200 mg PO DAILY Qty: 60 0RF Rx Instructions: 2 tabs daily tramadol 50 mg Tablet 50 mg PO Q8H PRN PRN (Reason: Pain Score 1-10) 7 Days Qty: 21 0RF Rx Instructions: Fracture of the DENS with cervical fusion Continued nifedipine 30 mg Tablet Extended Release 30 mg PO DAILY pantoprazole 40 mg Tablet,Delayed Release (Dr/Ec) 40 mg PO DAILY hydroxychloroquine 200 mg Tablet 200 mg PO BID acetaminophen 500 mg Capsule 500 mg PO Q6H PRN (Reason: Pain) metoprolol tartrate 25 mg Tablet 25 mg PO BID loratadine 10 mg Capsule 10 mg PO DAILY cyanocobalamin (vitamin B-12) 2,500 mcg Lozenge 2,500 mcg SUBLINGUAL DAILY alendronate 70 mg Tablet 70 mg PO TU Discontinued tramadol 50 mg Tablet 50 mg PO Q12H PRN PRN (Reason: Pain) flecainide 50 mg Tablet 50 mg PO Q12H gabapentin 100 mg Capsule 100 mg PO DAILY allopurinol 300 mg Tablet 300 mg PO DAILY docusate sodium 100 mg Capsule 100 mg PO BID No Action polyethylene glycol 3350 [Miralax] 17 gram Powder In Packet 17 g PO DAILY PRN (Reason: Constipation) Referrals / Follow Up: [facility] [Other] - 02/15/23 2:00 pm Abdirizak Menezes MD [Med Staff - Active Staff] - 02/15/23 9:00 am Disposition Disposition (needs filled in before D/C Order can be placed): Home Health Service
--- NOTE | 2023-02-08 15:05 | PCM.DC.SUM ---
Providers Date of Admission: 01/25/23 Date of Discharge: 02/08/23 Primary Care Physician: Dr. Leeann Howard, DO none Reason For Visit: DENS fracture due to fall with cervical fusion. Diagnosis Discharge Diagnosis (1) Debility: Status: Acute Code(s): R53.81 - Other malaise (2) History of fall: Status: Acute Code(s): Z91.81 - History of falling (3) Closed dens fracture: Status: Acute Code(s): S12.100A - Unspecified displaced fracture of second cervical vertebra, initial encounter for closed fracture (4) Cervical vertebral fusion: Status: Acute Code(s): M43.22 - Fusion of spine, cervical region (5) Nasal bone fractures: Status: Acute Code(s): S02.2XXA - Fracture of nasal bones, initial encounter for closed fracture (6) Fracture of olecranon process, right, closed: Status: Acute Code(s): S52.021A - Displaced fracture of olecranon process without intraarticular extension of right ulna, initial encounter for closed fracture (7) Scleroderma: Status: Inactive Code(s): M34.9 - Systemic sclerosis, unspecified (8) Anemia: Status: Acute Code(s): D64.9 - Anemia, unspecified Plan: May be due to acute blood loss from surgery or she could have anemia of chronic disease due to scleroderma. We have no recent baseline HGB for her. [place] [facility] [place]. No DME needs. Medications at Discharge Home Medications acetaminophen 500 mg capsule 500 mg PO Q6H PRN Pain 02/22/21 cyanocobalamin (vitamin B-12) 2,500 mcg sublingual lozenge 2,500 mcg sublingual DAILY 02/22/21 hydroxychloroquine 200 mg tablet 200 mg PO BID Scleroderma 02/22/21 loratadine 10 mg capsule 10 mg PO DAILY Allergies 02/22/21 metoprolol tartrate 25 mg tablet 25 mg PO BID BP 02/22/21 nifedipine 30 mg tablet,extended release 30 mg PO DAILY BP 02/22/21 pantoprazole 40 mg tablet,delayed release 40 mg PO DAILY GERD 02/22/21 alendronate 70 mg tablet 70 mg PO TU Supplement 01/25/23 polyethylene glycol 3350 17 gram oral powder packet (Miralax) 17 g PO DAILY PRN Constipation 01/25/23 allopurinol 100 mg tablet 200 mg (2 x 100 mg) PO DAILY #60 tabs 02/08/23 tramadol 50 mg tablet 50 mg PO Q8H PRN PRN Pain Score 1-10 7 days #21 tabs 02/08/23 Hospital Course Operations - (Fusion of C1-C2 on 01/17/[address] Calvo. ) Procedures None Summary of Care Provided Minutes Spent on Discharge: 45 Hospital Course: ESTHER BUSTILLOS, is a 82-year-old F with a past medical history of hypertension, GERD, watermelon stomach, anxiety, B12 deficiency, osteoporosis, gout, paroxysmal atrial fibrillation (has never been on anticoagulation) and scleroderma. Danni missed the bed when getting back in the bed after a trip to the bathroom in the proof technician of 01/14/23. She fell on her face and her head snapped back with hyperextension of the neck. She was unable to stand on her own and she told her family she needed to go to the ED. EMS took her to [facility] and she underwent CT imaging of the face, head, maxillofacial area and the C-spine. She had plain XRAYS of the chest, pelvis and right elbow. She was found to have a type III odontoid fracture, bilateral nasal bone fractures and a nondisplaced olecranon fracture of the right elbow. The RUE was placed in a splint and she was transferred to in [place]. She was seen and evaluated by the trauma service and was placed in an [place] collar. Plastic surgery was consulted for the nasal fractures and orthopedic surgery for the fracture of the right olecranon. She was also seen by cardiology for a prolonged QT and Flecainide was stopped. She is going to follow up with Dr. Mccall from cardiology post discharge from rehab. She was taken to surgery on 01/17/[address] Calvo for a fusion of C1-C2. Postoperatively she was seen by speech therapy, Occupational Therapy and physical therapy. Admission to an acute rehab unit was recommended at discharge from [facility]. Esther was admitted to [facility] acute rehab on 01/25/23 for 3 hours of therapy daily to restore function/independence at or near her level prior to the dens fracture. Danni was very motivated to get better and go home. She worked hard with therapy and made excellent progress. At the time of discharge she was supervision/set up for eating and standby assist for grooming. She required only minimal assistance with bathing, upper body dressing, lower body dressing, toilet transfer and toileting. She was contact-guard assist with tub/shower transfer. She was able to ascend/descend three 4 inch steps and two 7 inch steps at light contact-guard assist with 1 handrail. She is also able to do a curb step with a hand-held device at contact-guard assist. She had ambulated up to 340 feet with no assistive device over various surfaces at contact-guard assist. Hemoglobin at arrival to rehab was 9.0 and prior to discharge was 10.5. White blood cells were within normal limits and the platelet count was normal. I suspect the anemia is acute on chronic due to acute blood loss on anemia of chronic disease due to scleroderma. Anemia could also be related to allopurinol. Her uric acid at admission was 2.4 and the dose was decreased to 200 mg daily. The uric acid was rechecked prior to discharge and it had decreased to 2.1. She is going to continue to 100 mg daily at discharge. Creatinine was stable for the duration of her stay in rehab. Danni's family is very supportive and she will have 24/7 help at home. She was discharged home on 02/08/23. She will have HHC with [facility]. She has an appointment with Dr. Calvo on 02/15/2023 at 2 PM and a appointment with Dr. Abdirizak Menezes on 02/15/[address] Menezes is going to see her for the fracture of the R elbow. She will also need to follow up with her PCP in 7-10 days and with her leasing agent. Physical Exam Const alert, oriented x3, no apparent distress and healthy appearing General Appearance: cooperative, well kempt and well developed Orientation / Consciousness: Negative for confused HEENT normocephalic and hearing grossly normal bilaterally Eyes PERRL, EOMs intact bilaterally, conjunctivae normal and no scleral icterus Eyes Narrative: No discharge from the eyes and no mattering of the eyelashes. No visual field cuts Neck no lymphadenopathy, supple, no JVD and no carotid bruits General: trachea midline Resp normal respiratory effort, normal air movement, no retractions, no use of accessory muscles and clear to auscultation bilaterally Effort and Inspection: able to speak in complete sentences; Negative for tachypneic or labored Cardio regular rate, regular rhythm and no gallops Cardio Narrative: She has a systolic murmur at the second right intercostal space which radiates to the apex in the lower left sternal border. There is a widely split S1. She has known aortic stenosis. GI normal to inspection, nondistended, normoactive bowel sounds, soft to palpation, non-tender and no masses GI Narrative: No guarding with palpation no CVA tenderness Extremity normal capillary refill, no calf tenderness and no pedal edema Extremity Narrative: She has multiple hammer toes due to scleroderma. She has flexion contractures of multiple fingers due to scleroderma and has small scabs over the PIP of a few fingers on the R hand. Both hands and both feet are warm to touch with intact sensation. The RUE distal to the elbow is in a soft cast and she is NWB on the RUE. She will be following up with Dr. Abdirizak Menezes for the elbow fracture post DC. Radial pulses are strong. General Extremity: Negative for edema Skin Skin Narrative: No rashes, no skin breakdown. Cervical incision is intact with no erythema and no DC. Skin over the face and the digits of the hands and feet is tight with no wrinkling (except for around her mouth) due to scleroderma. General Skin Exam: no breakdown Rashes: no rashes Neuro oriented x3, CN's II-XII intact bilaterally, moves all extremities, no focal motor deficits and no sensory deficits noted Psych cooperative and affect normal Appearance: grossly normal, appropriate and well kempt Attitude: calm Weight / BMI Weight Weight: 104 lb 0.931 oz Body Mass Index (BMI) 20.3 ABG / Lab / Microbiology Data 02/04/23 05:28 02/04/23 05:28 D/C Instructions Discharge Diet: No restrictions Weight Bearing Status: No weight bearing (On the R arm. Full weight bearing on the legs. ) Call your doctor if your incision/area has: Continuous Slow Oozing, Sudden Increased Bleeding, Increased Pain/ Swelling, Increased Redness and Foul Smelling Discharge Call your doctor if you observe: Fever of 101 or Higher, Inability to urinate, Inability to have a bowel movement, Shortness of breath, Fainting spells, Swelling in the ankles, Chest pain, Increased palpitations (irregular heartbeat), Calf discomfort, Uncontrolled pain and - (Headaches, night sweats, shaking chills. ) Suture Line Care: Avoid Pulling/Pushing and Avoid Pinching/Bending Cleanse incision/area with: Soap & Water (and pat dry) Additional Dressing/Incision Instructions: No dressing needed. Pending Tests Upon Discharge: none Please Follow Up With: Lee Norris When: within te next 7-10 days. You will also need to follow up with Dr. Menezes and The neurosurgeon. Meaningful Use Info Meaningful Use Diagnoses (Choose all that apply): None applicable Discharge Plan Admission Admit Date/Time: 01/25/23 17:27 Primary Reason for Your Visit: Debility due to a fall with fracture of the dens and R olecranon fracture Attending Provider: Ольга Jacome Primary Care Provider: Leeann Howard Instructions Patient Instructions: Caring for Your Incision Additional Instructions / Restrictions: 1. You were a ray of kasey in rehab and we all enjoyed having you around. I admire the way you deal with your chronic disease and keep plugging along. Having the surgery on your neck like you did is not only painful it takes a lot out of you and it will take 3-6 months to get your full strength back. Keep up with your exercises daily and don't stop moving. Don not sit for longer than 1 hour without getting up to take a short walk around the house. 2. I know that you walked without a can or a walker in rehab BUT, if you are outside the house I recommend you have a cane with you to help with balance, marjan if you are walking on uneven surfaces. 3. I checked your uric acid while you were in rehab and it was only 2.4. Usually with gouty arthritis with tophi we aim to keep the uric acid under 5. Allopurinol has a lot of side effects and these include rashes, nausea, vomiting, kidney failure, anemia, low platelets, hair loss etc. You were taking 300 mg daily at presentation to rehab and the uric acid was 2.4. I decreased the dose to 200 mg daily and the uric acid yesterday was 2.1. I would discuss this with your leasing agent at the next visit. You are anemia and the hemoglobin is 10.5......normal is 12-14. Scleroderma can also cause anemia and when I look back at your labs over the past few years you have been anemic for a while. 4. You should dry to drink more water. Women as they get older lose their sense of thirst and they don't like to drink a lot of fluids because they do not want to leak urine into their underwear. If you ever feel weak and lightheaded sit down and DRINK. I would like you to drink at least 1200 ml of fluids daily (that is 40 ounces). When you are dehydrated and you stand up your gravity takes your blood to your feet and this can deprive the brain of blood flow and you could pass out or have a stroke or TIA. They make underwear now that is specially made for women who have the leaking and they are made by a company called [employer].......this way you would not have to wear a thick pad which can be uncomfortable. 5. Do NOT overdo because you will get stiff and sore and then you will not want to to your exercises. Balance exercise with rest. 6. It was a pleasure meeting you and if you ever have a need for rehab in the future we will gladly have you back. If you or your family have any questions after leaving rehab please do not hesitate to call me. OFFICE: [phone] CELL: [phone] PS: Biotene is the artificial saliva we prescribed for you. It is available over the counter as a mouthwash, spray and lozenges at most pharmacies. There is an arthritis cream that the pharmacist from the hospital makes up and it contains Lidocaine, Voltaren and Baclofen (anesthetic, anti-inflammatory and muscle relaxer). I use it when my hands are hurting a lot and it works within minutes. I will give you a prescription and you can fill it if you want. Insurance doesn't pay for it but, a little goes a long way and it can really help with joint pain. Another thing you could try for your hands is a paraffin wax bath., they sell them on [employer] and it helps a lot of patients with arthritis. Discharge Orders/Prescriptions Prescriptions: New allopurinol 100 mg Tablet 200 mg PO DAILY Qty: 60 0RF Rx Instructions: 2 tabs daily tramadol 50 mg Tablet 50 mg PO Q8H PRN PRN (Reason: Pain Score 1-10) 7 Days Qty: 21 0RF Rx Instructions: Fracture of the DENS with cervical fusion Continued nifedipine 30 mg Tablet Extended Release 30 mg PO DAILY pantoprazole 40 mg Tablet,Delayed Release (Dr/Ec) 40 mg PO DAILY hydroxychloroquine 200 mg Tablet 200 mg PO BID acetaminophen 500 mg Capsule 500 mg PO Q6H PRN (Reason: Pain) metoprolol tartrate 25 mg Tablet 25 mg PO BID loratadine 10 mg Capsule 10 mg PO DAILY cyanocobalamin (vitamin B-12) 2,500 mcg Lozenge 2,500 mcg SUBLINGUAL DAILY alendronate 70 mg Tablet 70 mg PO TU Discontinued tramadol 50 mg Tablet 50 mg PO Q12H PRN PRN (Reason: Pain) flecainide 50 mg Tablet 50 mg PO Q12H gabapentin 100 mg Capsule 100 mg PO DAILY allopurinol 300 mg Tablet 300 mg PO DAILY docusate sodium 100 mg Capsule 100 mg PO BID No Action polyethylene glycol 3350 [Miralax] 17 gram Powder In Packet 17 g PO DAILY PRN (Reason: Constipation) Referrals / Follow Up: [facility] [Other] - 02/15/23 2:00 pm Abdirizak Menezes MD [Med Staff - Active Staff] - 02/15/23 9:00 am Disposition Disposition (needs filled in before D/C Order can be placed): Home Health Service Charges/Coding Visit Charges Inpatient E&M: 46984 Disch Hosp >30min
--- NOTE | 2023-02-08 16:43 | NURSING ---
discharged home with family. discharge instruction, medications and appointments reviewed with pt and family. denies questions or concerns
[2023-02-08 16:44] VITALS: BP 145/59; PULSE 81; RESP 16; TEMP 36.4; O2SAT 100
== END 2023-02-08 16:48 | disposition home health service (06) | DRG 561 ==
PROVIDERS: Admitting Provider Internal Medicine; PCP Family Medicine; Visit Provider Internal Medicine
DX: S12.120D Other displaced dens fracture, subsequent encounter for fracture with routine healing (principal); M34.9 Systemic sclerosis, unspecified; I48.0 Paroxysmal atrial fibrillation; M10.9 Gout, unspecified; E53.8 Deficiency of other specified B group vitamins; K21.9 Gastro-esophageal reflux disease without esophagitis; I10 Essential (primary) hypertension; W18.30XD Fall on same level, unspecified, subsequent encounter; K31.819 Angiodysplasia of stomach and duodenum without bleeding; S12.101D Unspecified nondisplaced fracture of second cervical vertebra, subsequent encounter for fracture with routine healing; G89.29 Other chronic pain; Z98.1 Arthrodesis status; S02.2XXD Fracture of nasal bones, subsequent encounter for fracture with routine healing; S52.021D Displaced fracture of olecranon process without intraarticular extension of right ulna, subsequent encounter for closed fracture with routine healing; Z79.899 Other long term (current) drug therapy
CPT/HCPCS: 36415; 73080; 80048; 80053; 83735; 84100; 84550; 85027; 92507; 92526; 92610; 97110; 97112; 97162; 97165; 97530; 97535; 97802